=== PATIENT | female | born 1945 | race Caucasian/White ===

== ENCOUNTER 2017-05-21 16:33 | Outpatient (CLI) | payer MEDICARE, OTHER | END 2017-05-21 16:34 | disposition home or self-care (01) | LOC: BICRAD 16:33 | PROVIDERS: ATTEND Internal Medicine Rheumatology | DX: M54.9 Dorsalgia, unspecified (principal); M47.894 Other spondylosis, thoracic region; M47.896 Other spondylosis, lumbar region; M43.16 Spondylolisthesis, lumbar region; I70.90 Unspecified atherosclerosis | CPT/HCPCS: 72072; 72100 ==

== ENCOUNTER 2017-05-25 12:18 | Outpatient (CLI) | payer MEDICARE, OTHER | END 2017-05-25 12:19 | disposition home or self-care (01) | LOC: BICMAMMO 12:18 | PROVIDERS: ATTEND Internal Medicine Rheumatology | DX: Z13.820 Encounter for screening for osteoporosis (principal); M85.80 Other specified disorders of bone density and structure, unspecified site; Z78.0 Asymptomatic menopausal state | CPT/HCPCS: 77080 ==

== ENCOUNTER 2017-10-14 11:05 | Outpatient (CLI) | payer MEDICARE, OTHER | END 2017-10-14 11:06 | disposition home or self-care (01) | LOC: BICRAD 11:05 | PROVIDERS: ATTEND Internal Medicine Rheumatology | DX: M70.61 Trochanteric bursitis, right hip (principal); M53.87 Other specified dorsopathies, lumbosacral region ==

== ENCOUNTER 2018-03-27 12:23 | Inpatient (IN) | payer MEDICARE, OTHER ==
[2018-03-27 13:03] LABS: #Basophils 0.1 thou/uL (0.0-0.2); #Eosinphils 0.1 thou/uL (0.0-0.7); #Lymphocytes 1.7 thou/uL (1.20-3.40); #Monocytes 0.7 thou/uL (0.11-0.59); #Neutrophils 3.3 thou/uL (1.40-6.50); %Lymphocytes 28.7 % (21.0-51.0); %Monocytes 11.4 % (0.0-10.0); %Neutrophils 56.9 % (42.0-75.0); Hemoglobin 10.8 g/dL (12.0-16.0); Mean Corpuscular HGB CONC 31.9 g/dL (32.0-36.0); Mean Corpuscular Hemoglobin 27.1 pg (27.0-31.0); Mean Corpuscular Volume 84.8 fL (78.0-98.0); Mean Platelet Volume 7.6 fL (7.4-10.4); Platelet Count 341 thou/uL (130-400); RBC Distribution Width 15.4 % (11.5-14.5); White Blood Cell (WBC) Count 5.8 thou/uL (4.8-10.8)
[2018-03-27 13:29] LABS: CKMB 6.6 ng/mL (0-6.6)
[2018-03-27 13:31] LABS: ALT (SGPT) 20 U/L (8-55); AST (SGOT) 24 U/L (5-34); Alkaline Phosphatase 88 U/L (40-150); Anion Gap 15 mmol/L (10-20); BUN (Urea Nitrogen) 19 mg/dL (9.8-20.1); Bilirubin, Total 0.9 mg/dL (0.2-1.2); CK (CPK) 233 U/L (29-168); Calc. Creatinine Clearance 0 mL/min (70-130); Calcium 9.8 mg/dL (7.8-10.44); Carbon Dioxide 24 mmol/L (23-31); Chloride 107 mmol/L (98-107); Estimated GFR-MDRD 65; Globulin 2.7 g/dL (2.4-3.5); Glucose 156 mg/dL (83-110); Potassium 3.6 mmol/L (3.5-5.1); Protein, Total 6.7 g/dL (6.0-8.3); Sodium 142 mmol/L (136-145)
--- NOTE | 2018-03-27 13:52 | RAD ---
SINGLE VIEW OF THE CHEST: COMPARISON: 08/15/2015. HISTORY: Difficulty breathing with bilateral lower extremity swelling for 2 weeks. FINDINGS: A single view of the chest shows an enlarged cardiomediastinal silhouette. There is no evidence of c onsolidation, mass, or pleural effusion. IMPRESSION: Cardiomegaly. POS: [facility]
[2018-03-27] MEDS ORDERED: cefTRIAXone\\ROCEPHIN 1 GM VIAL ONE (14:43)
[2018-03-27] MEDS ORDERED: Furosemide 40 MG/4 ML VIAL ONE (16:36)
--- NOTE | 2018-03-27 16:38 | CT ---
CTA CHEST WITH CONTRAST: Technique: Multiple axial tomograms were obtained through the chest following pulmonary angio protoco l with multiplanar reconstruction and 3D post processing. Indications: Shortness of breath, chest pain. Cough. FINDINGS: Pulmonary arteries show adequate enhancement. No evidence of pulmonary embolus identified. There are small bilateral pleural effusions present. There is vascular congestion. There is some grou nd glass opacity which may represent mild edema. Mediastinum is unremarkable. IMPRESSION: 1. No evidence of pulmonary embolus. 2. Bilateral pleural effusions with cardiomegaly and vascular congestion. POS: [facility]
[2018-03-27] MEDS ORDERED: Nitroglycerin 2% Ointment 1 INCH/1 GM Packet ONE ×2 (17:32→17:34)
[2018-03-27 18:56] LABS: Troponin I 0.161 ng/mL (< 0.028)
[2018-03-27] MEDS ORDERED: Dextrose 5% in Water 1,000 ML IV PRN (19:48)
[2018-03-27] MEDS ORDERED: Dextrose 50% Abboject 50 ML SYRINGE SLOW IVP PRN (19:48)
[2018-03-27] MEDS ORDERED: Senokot S 8.6-50 MG TAB PO PRN (19:48)
[2018-03-27] MEDS ORDERED: Guaifenesin DM 100-10/5 ML UDCUP PO PRN (19:48)
[2018-03-27] MEDS ORDERED: HumaLOG 300 UNITS/3 ML VIAL SC PRN (19:48)
--- NOTE | 2018-03-27 21:02 | HP ---
REASON FOR ADMISSION: CHF and COPD exacerbation, demand ischemia. HISTORY OF PRESENTING ILLNESS: The patient gives history of having difficulty breathing with fluid buildup in her legs and chest from last 2 weeks. She has not been able to ambulate more than 20 to 30 feet without getting short of breath. All this was new. She has been coughing and wheezing as well. She does not know if she took her flu shot for this year. No prior cardiac workup, although she has seen Dr. Conti once prior to knee surgery. She has no complaints of chest pain, but has orthopnea at present. Whole night, she was sitting up on bed as she was having difficulty breathing. She was recently on doxycycline from the of this month for likely upper respiratory infection. No fever at home. No complaints of urinary frequency or urgency at present. The family at bedside also mentioned that cognitively, she is not the same at present. PAST MEDICAL AND SURGICAL HISTORY: Hypertension, diabetes mellitus type 2, dyslipidemia, left total knee replacement, appendectomy, hysterectomy, history of gout for which she follows up with Dr. Mojica, cystoscopy, left wrist cyst removal. Colonoscopy done in 2012 was normal per patient. CURRENT MEDICATIONS: The patient was taking doxycycline 100 mg twice daily from the of this month and has finished the course; Protonix 40 mg daily; Ultram p.r.n. for pain, started from the of this month; Lasix, the patient stopped taking this from last 2 weeks, she was supposed to take 40 mg daily; glyburide with metformin 1.25/250 mg p.o. daily; nifedipine extended release 30 mg daily; Duloxetine 60 mg daily; and Crestor 20 mg daily. ALLERGIES: TO ASPIRIN, CODEINE, IODINE, AND PENICILLIN. PERSONAL HISTORY: Does not abuse alcohol or drugs. Quit smoking in 2005, prior to which she smoked half pack a day for nearly 40 years. FAMILY HISTORY: Mother at the age of 48 years, she had history of Hodgkin' s lymphoma. Father in his 80s. Prior to , he had massive pulmonary embolism. CODE STATUS: Full. The power of assistant county attorney is her brother, Mr. Avendaño. REVIEW OF SYSTEMS: CONSTITUTIONAL: Negative for weight loss or gain, ability to conduct usual activities. SKIN: Negative for rash, itching. EYES: Negative for double vision, pain. ENT/MOUTH: Negative for nose bleeding, neck stiffness, pain, tenderness. CARDIOVASCULAR: Negative for palpitations, dyspnea on exertion, orthopnea. RESPIRATORY: Negative for shortness of breath, wheezing, cough, hemoptysis, fever or night sweats. GASTROINTESTINAL: Negative for poor appetite, abdominal pain, heartburn, nausea , vomiting, constipation, or diarrhea. GENITOURINARY: Negative for urgency, frequency, dysuria, nocturia. MUSCULOSKELETAL: Negative for pain, swelling. NEUROLOGIC/PSYCHIATRIC: Negative for anxiety, depression. ALLERGY/IMMUNOLOGIC: Negative for skin rash, bleeding tendency. PHYSICAL EXAMINATION: GENERAL: The patient is a 73-year-old female, who is currently in mild-to- moderate respiratory distress with wheezing. VITAL SIGNS: Blood pressure 140/90, pulse 120 per minute, respiratory rate 24 per minute, temperature 98.2 degrees Fahrenheit, and saturating 97% on 2 L nasal cannula. NECK: Supple. No elevated JVD. EYES: Extraocular muscles intact. Pupils reacting to light. Oral cavity, mucous membranes are moist. No exudates or congestion. CARDIOVASCULAR SYSTEM: S1 and S2 heard. Regular rhythm. RESPIRATORY SYSTEM: Air entry 1+ bilateral. Scattered wheezes plus bilateral. ABDOMEN: Soft. Bowel sounds heard. No tenderness, rigidity, or guarding. EXTREMITIES: There is peripheral edema. No calf tenderness. VASCULAR SYSTEM: Peripheral pulses 1+ bilateral. No ischemic ulcerations or gangrene. CENTRAL NERVOUS SYSTEM: No gross focal deficits noted. The patient is a bit lethargic, otherwise responds well to questions. No hallucinations or delusions. LABORATORY DATA: CT angio of chest done shows no evidence of PE. There is pulmonary vascular congestion, cardiomegaly, and bilateral pleural effusion. Troponin I is indeterminate, peaking up to 0.16. CK-MB 6.6. Albumin is 4.0. CK level is 233. BNP is 830. Serum glucose 156. BUN is 19, creatinine 0.8, and serum bicarbonate 24. Lactic acid 1.5. LFTs are within normal limits. White count of 5.8, hemoglobin and hematocrit 10 and 33, platelet count 341 with 56% neutrophils, and MCV is 84. EKG done shows sinus tach at 128 beats per minute. There is RBBB seen. CLINICAL IMPRESSION AND PLAN: The patient will be admitted to telemetry for acute new onset congestive heart failure exacerbation and acute chronic obstructive pulmonary disease exacerbation. The patient likely might have had a viral illness, which might have escalated this from last 2 weeks. She will be on DuoNeb q.6 hourly, Levaquin 500 mg IV daily, Solu-Medrol 40 mg IV q.6 hourly along with Lasix 40 mg IV q.12 hourly. We will obtain blood and sputum cultures. Viral PCR to confirm viral illness. Echo with 2D Doppler for LV function. We will also obtain Cardiology consultation with Dr. Willson, who was fashion merchandiser. We will continue her Crestor and Cymbalta as before. She will be on a small dose of Coreg and Cozaar for now. The patient is allergic to aspirin and we will place her on Plavix for now. The patient has never had prior cardiac workup, although she has seen Dr. Conti. Job ID: [id number] [facility]
[2018-03-27] MEDS: Folic Acid 1 MG TAB PO SCH (22:08)
[2018-03-27] MEDS: Carvedilol 3.125 MG TAB PO SCH (22:08)
[2018-03-27] MEDS: Famotidine 20 MG TAB PO SCH (22:09)
[2018-03-28 05:05] LABS: #Basophils 0.1 thou/uL (0.0-0.2); #Lymphocytes 0.7 thou/uL (1.20-3.40); #Monocytes 0.2 thou/uL (0.11-0.59); #Neutrophils 4.5 thou/uL (1.40-6.50); %Basophils 1.1 % (0.0-1.0); %Eosinophils 0.3 % (0.0-10.0); %Lymphocytes 13.5 % (21.0-51.0); %Monocytes 2.8 % (0.0-10.0); %Neutrophils 82.4 % (42.0-75.0); Hemoglobin 10.2 g/dL (12.0-16.0); Mean Corpuscular HGB CONC 31.4 g/dL (32.0-36.0); Mean Corpuscular Hemoglobin 26.4 pg (27.0-31.0); Mean Corpuscular Volume 83.9 fL (78.0-98.0); Mean Platelet Volume 7.5 fL (7.4-10.4); Platelet Count 328 thou/uL (130-400); RBC Distribution Width 15.2 % (11.5-14.5); Red Blood Cell (RBC) Count 3.88 mill/uL (4.20-5.40); White Blood Cell (WBC) Count 5.5 thou/uL (4.8-10.8)
[2018-03-28 05:24] LABS: Anion Gap 15 mmol/L (10-20); BUN (Urea Nitrogen) 18 mg/dL (9.8-20.1); Calc. Creatinine Clearance 85 mL/min (70-130); Calcium 9.5 mg/dL (7.8-10.44); Carbon Dioxide 26 mmol/L (23-31); Chloride 102 mmol/L (98-107); Estimated GFR-MDRD 68; Glucose 142 mg/dL (83-110); Potassium 3.5 mmol/L (3.5-5.1); Sodium 139 mmol/L (136-145)
[2018-03-28] MEDS: Furosemide 40 MG/4 ML VIAL SLOW IVP SCH ×2 (06:21→13:39)
--- NOTE | 2018-03-28 07:26 | CT ---
CT HEAD WITHOUT CONTRAST: Multiple axial tomograms were obtained through the head without IV enhancement. INDICATION: Mental status change. Confusion. Ventricles have normal size and position. There is no evidence of intracranial mass, hemorrhage, or infarct. Sinuses are clear. IMPRESSION: No acute abnormality. POS: [facility]
[2018-03-28] MEDS: DULoxetine 60 MG CAP PO SCH (09:45)
[2018-03-28] MEDS: Famotidine 20 MG TAB PO SCH ×2 (09:45→20:12)
[2018-03-28] MEDS: Clopidogrel Bisulfate 75 MG TAB PO SCH (09:45)
[2018-03-28] MEDS: Carvedilol 3.125 MG TAB PO SCH ×2 (09:45→20:12)
[2018-03-28] MEDS: Losartan 25 MG TAB PO SCH (09:45)
[2018-03-28] MEDS: Folic Acid 1 MG TAB PO SCH ×2 (09:45→20:12)
[2018-03-28] MEDS: Enoxaparin Sodium 40 MG/0.4 ML SYRINGE SC SCH (09:46)
[2018-03-28] MEDS: Rosuvastatin 20 MG TAB PO SCH (09:46)
[2018-03-28 10:57] VITALS: BMI 39.4
--- NOTE | 2018-03-28 12:25 | PDOC.PN ---
- Subjective Encounter Start Date: 03/28/18 Encounter Start Time: 09:00 Subjective: sob is better, no wheezing this am -: feels better - Objective Resuscitation Status - Order Detail: 03/27/18 19:41 Resuscitation Status Routine Resuscitation Status: FULL: Full Resuscitation Discussed with: NOE is brother: Mr.Vince BAKER Reviewed: Yes Vital Signs & Weight: Vital Signs (12 hours) Temp Pulse Resp BP Pulse Ox 03/28/18 11:22 98.4 F 111 H 20 122/78 92 L 03/28/18 07:22 95 03/28/18 07:20 86 L 03/28/18 07:18 120 H 18 95 03/28/18 07:04 97.9 F 117 H 20 136/86 92 L 03/28/18 04:48 97.6 F 68 20 139/79 95 Weight Admit Weight 193 lb 12.8 oz Weight 195 lb Result Diagrams: 03/28/18 04:53 03/28/18 04:53 Additional Labs: Accuchecks 03/28/18 03/27/18 11:25 21:26 POC Glucose 173 H 120 H Phys Exam - Physical Examination HEENT: PERRLA, moist MMs Neck: no JVD, supple Respiratory: no wheezing basal rales+ Cardiovascular: RRR, no significant murmur Gastrointestinal: soft, non-tender, positive bowel sounds Musculoskeletal: pulses present, edema present Neurological: non-focal, moves all 4 limbs Psychiatric: normal affect, A&O x 3 Dx/Plan (1) Acute exacerbation of CHF (congestive heart failure) Code(s): I50.9 - HEART FAILURE, UNSPECIFIED Status: Acute Qualifiers: Heart failure type: unspecified Qualified Code(s): I50.9 - Heart failure, unspecified (2) COPD exacerbation Code(s): J44.1 - CHRONIC OBSTRUCTIVE PULMONARY DISEASE W (ACUTE) EXACERBATION Status: Acute (3) DM type 2 (diabetes mellitus, type 2) Status: Chronic Qualifiers: Diabetes mellitus intermodal dispatcher insulin use: without assisted use Diabetes mellitus complication status: with unspecified complications Qualified Code(s) : E11.8 - Type 2 diabetes mellitus with unspecified complications (4) Depression Code(s): F32.9 - MAJOR DEPRESSIVE DISORDER, SINGLE EPISODE, UNSPECIFIED Status : Chronic Qualifiers: Depression Type: unspecified Qualified Code(s): F32.9 - Major depressive disorder, single episode, unspecified (5) HLD (hyperlipidemia) Code(s): E78.5 - HYPERLIPIDEMIA, UNSPECIFIED Status: Chronic Qualifiers: Hyperlipidemia type: unspecified Qualified Code(s): E78.5 - Hyperlipidemia , unspecified (6) HTN (hypertension) Code(s): I10 - ESSENTIAL (PRIMARY) HYPERTENSION Status: Chronic Qualifiers: Hypertension type: essential hypertension Qualified Code(s): I10 - Essential (primary) hypertension (7) Rheumatoid arthritis Code(s): M06.9 - RHEUMATOID ARTHRITIS, UNSPECIFIED Status: Chronic Qualifiers: Rheumatoid arthritis location: unspecified site - Plan is on plavix, crestor, coreg, cozaar, lasix iv -: levaquin, will switch to oral steroids -: await echo results, cardio consultation -: to amb as tolerated -: ct brain no ac abn, viral pcr is -ve * . Review of Systems - Medications/Allergies Allergies/Adverse Reactions: Allergies Allergy/AdvReac Type Severity Reaction Status Date / Time aspirin Allergy Rash Verified 03/27/18 21:45 codeine Allergy Rash Verified 03/27/18 21:45 Iodine and Iodide Containing Allergy facial Verified 03/27/18 21:45 Produc swelling Penicillins Allergy Rash Verified 03/27/18 21:45 Medications: Current Medications Albuterol/Ipratropium (Duoneb) 3 ml NEB [id number] [facility] Last Admin: 03/28/18 07:18 Dose: 3 ml Carvedilol (Coreg) 3.125 mg PO BID [facility] Last Admin: 03/28/18 09:45 Dose: 3.125 mg Clopidogrel Bisulfate (Plavix) 75 mg PO DAILY [facility] Last Admin: 03/28/18 09:45 Dose: 75 mg Dextrose/Water (Dextrose 50%) 25 gm SLOW IVP PRN PRN PRN Reason: Hypoglycemia Duloxetine HCl (Cymbalta) 60 mg PO DAILY [facility] Last Admin: 03/28/18 09:45 Dose: 60 mg Enoxaparin Sodium (Lovenox) 40 mg SC 0900 [facility] Last Admin: 03/28/18 09:46 Dose: 40 mg Famotidine (Pepcid) 20 mg PO BID [facility] Last Admin: 03/28/18 09:45 Dose: 20 mg Folic Acid (Folvite) 1 mg PO BID [facility] Last Admin: 03/28/18 09:45 Dose: 1 mg Furosemide (Lasix) 40 mg SLOW IVP 0600,1400 [facility] Last Admin: 03/28/18 06:21 Dose: 40 mg Glucagon (Glucagon) 1 mg IM PRN PRN PRN Reason: Hypoglycemia Guaifenesin/Dextromethorphan (Robitussin Dm) 15 ml PO Q4H PRN PRN Reason: Cough Dextrose/Water (D5w) 1,000 mls @ 0 mls/hr IV .Q0M PRN PRN Reason: Hypoglycemia Levofloxacin 500 mg/ Device 100 mls @ 100 mls/hr IVPB 2000 [facility] Last Admin: 03/27/18 21:24 Dose: Not Given Insulin Human Lispro (Humalog) 0 units SC .MODERATE SLIDING SC PRN PRN Reason: Moderate Correctional Scale Losartan Potassium (Cozaar) 12.5 mg PO DAILY [facility] Last Admin: 03/28/18 09:45 Dose: 12.5 mg Methylprednisolone Sodium Succinate (Solu-Medrol) 40 mg IVP Q6HR [facility] Last Admin: 03/28/18 06:20 Dose: 40 mg Rosuvastatin Calcium (Crestor) 20 mg PO DAILY [facility] Last Admin: 03/28/18 09:46 Dose: 20 mg Senna/Docusate Sodium (Senokot S) 2 tab PO BID PRN PRN Reason: Constipation
[2018-03-28] MEDS ORDERED: Sodium Chloride 0.9% 1,000 ML IV SCH (17:15)
[2018-03-28] MEDS ORDERED: Communication Order-Pharmacy FS SCH (17:15)
--- NOTE | 2018-03-29 00:08 | CON ---
DATE OF CONSULTATION: HISTORY OF PRESENT ILLNESS: Jocelynn Smith is a 73-year-old white female admitted with increased shortness of breath. She apparently was evaluated by Dr. Conti 2-1/ 2 to 3 years ago prior to undergoing left total knee replacement. He told her that her heart was weak and that she probably should not undergo surgery, however, she elected to anyway. She has been on Lasix for several years. Over the last 2 weeks, she has been having increasing peripheral edema. She has also increased shortness of breath when she tries to walk to her mailbox. She becomes short of breath after walking 20-30 feet. She will have various types of chest discomfort, not lasting over several seconds. Due to increased shortness of breath, she came to the emergency room, was given intravenous Lasix and she diuresed at least 1000 mL. She states that her breathing is doing much better. PAST MEDICAL HISTORY: Hypertension, diabetes, hyperlipidemia, arthritis. OPERATIONS: Appendectomy, hysterectomy, left total knee replacement. MEDICATIONS: 1. Furosemide 40 mg q.a.m. 2. Rosuvastatin 20 at bedtime. 3. Cymbalta 60 daily. 4. Glyburide/metformin b.i.d. 5. Nifedipine 30 mg daily. 6. Protonix 40 daily. 7. Tramadol 50 b.i.d. ALLERGIES: ASPIRIN CAUSES RASH. IODINE PRODUCTS CAUSES MOUTH SWELLING. CODEINE AND PENICILLIN. SOCIAL HISTORY: She smoked one-half pack per day, but stopped in 2005. She does not drink. FAMILY HISTORY: Brother had bypass surgery. Father of pulmonary embolism. REVIEW OF SYSTEMS: 12-point review of systems otherwise unremarkable. PHYSICAL EXAMINATION: VITAL SIGNS: Blood pressure 139/73, pulse of 113. HEENT: PERRL. NECK: Supple. CHEST: Reveals distant breath sounds. No wheezing. CARDIOVASCULAR: S1 and S2 are normal without any S3, S4, or murmurs. ABDOMEN: Normal bowel sounds without tenderness or organomegaly. EXTREMITIES: Revealed no clubbing or cyanosis. Does have 1+ pretibial edema. NEUROLOGICAL: Grossly intact. SKIN: Warm and dry. LABORATORY DATA: EKG revealed sinus tachycardia with rate of 128 and right bundle branch block, and possible septal infarct. Echocardiogram revealed left pleural effusion, ejection fraction of 35% to 40%. Hypokinesis of the lateral wall. Mild left atrial enlargement. [id number] mitral regurgitation and [id number] tricuspid regurgitation. Chest x-ray revealed cardiomegaly and probable left effusion. Chest CTA revealed vascular congestion, no evidence of pulmonary embolism. She apparently was given contrast during that scan. Hemoglobin 10.2, hematocrit 32.5, white count 5500, platelets 328,000. Sodium 139, potassium 3.5, chloride 102, carbon dioxide 26, BUN 18, creatinine 0.83. Troponin I of 0.161. TSH is normal. BNP 830.9. IMPRESSION: 1. Acute on chronic systolic heart failure with ejection fraction of 35% to 40% on echocardiogram. 2. Mildly elevated troponin I, which may be due to demand ischemia. 3. Hypertension. 4. Diabetes. 5. Hypercholesterolemia. 6. Former smoker. 7. Chronic obstructive pulmonary disease. 8. Obesity. 9. Iodine allergy. 10. True Aspirin allergy. PLAN: Fasting lipid profile will be obtained. With her left ventricular dysfunction and never previously having had a full evaluation and with her multiple cardiac risk factors, it was recommended she undergo cardiac catheterization. Risks of this were discussed with the patient including , myocardial infarction, dye reaction, vascular injury, CVA, transfusion, limb loss, renal loss, etc. Also risk of intervention and stent placement were discussed including , myocardial infarction, emergent CABG, restenosis, stent thrombosis, vessel perforation, etc. She has appropriately been placed on carvedilol with her tachycardia and Plavix with her aspirin allergy. She apparently had CT angiogram with contrast and apparently did not have any significant reaction. However, she is quite emphatic that iodine caused the tongue and facial swelling when she was in her 20s. I will therefore start premedication for iodine allergy and consideration will be given to cardiac catheterization on March if she wishes to proceed. Job ID: [id number] [facility]
[2018-03-29] MEDS: diphenhydrAMINE 50 MG CAP PO SCH ×3 (05:52→18:24)
[2018-03-29] MEDS: Furosemide 40 MG/4 ML VIAL SLOW IVP SCH (05:52)
[2018-03-29] MEDS: predniSONE 20 MG TAB PO SCH ×3 (05:52→18:24)
[2018-03-29 06:41] LABS: Cardiac Risk 1.9 (Less than 4.5)
[2018-03-29] MEDS: Rosuvastatin 20 MG TAB PO SCH (09:21)
[2018-03-29] MEDS: Losartan 25 MG TAB PO SCH (09:21)
[2018-03-29] MEDS: DULoxetine 60 MG CAP PO SCH (09:21)
[2018-03-29] MEDS: Carvedilol 3.125 MG TAB PO SCH ×2 (09:21→20:32)
[2018-03-29] MEDS: Folic Acid 1 MG TAB PO SCH ×2 (09:21→20:32)
[2018-03-29] MEDS: Clopidogrel Bisulfate 75 MG TAB PO SCH (09:21)
[2018-03-29] MEDS: Famotidine 20 MG TAB PO SCH ×2 (09:21→20:32)
[2018-03-29] MEDS: Furosemide 40 MG TAB PO SCH (09:21)
[2018-03-29] MEDS: Enoxaparin Sodium 40 MG/0.4 ML SYRINGE SC SCH (09:23)
--- NOTE | 2018-03-29 10:24 | PDOC.PN ---
- Subjective Encounter Start Date: 03/29/18 Encounter Start Time: 10:00 Subjective: no sob, is actually making her bed in the room -: feels better, no chest pain or palp - Objective Resuscitation Status - Order Detail: 03/27/18 19:41 Resuscitation Status Routine Resuscitation Status: FULL: Full Resuscitation Discussed with: NOE is brother: Mr.Vince BAKER Reviewed: Yes Vital Signs & Weight: Vital Signs (12 hours) Temp Pulse Resp BP Pulse Ox 03/29/18 07:55 98.2 F 118 H 16 108/68 95 03/29/18 07:40 115 H 18 95 03/29/18 04:00 98.0 F 102 H 141/62 H 93 L 03/29/18 00:17 115 H 20 97 Weight Admit Weight 193 lb 12.8 oz Weight 190 lb 7 oz I&O: 03/28/18 03/29/18 03/30/18 06:59 06:59 06:59 Intake Total 240 Output Total 1700 Balance -1460 Result Diagrams: 03/28/18 04:53 03/28/18 04:53 Additional Labs: Accuchecks 03/29/18 03/28/18 05:30 11:25 POC Glucose 171 H 173 H Phys Exam - Physical Examination HEENT: PERRLA, moist MMs Neck: no JVD, supple Respiratory: no wheezing, no rales Cardiovascular: RRR, no significant murmur Gastrointestinal: soft, non-tender, positive bowel sounds Musculoskeletal: no edema, pulses present Neurological: non-focal, moves all 4 limbs Psychiatric: normal affect, A&O x 3 Dx/Plan (1) Acute exacerbation of CHF (congestive heart failure) Code(s): I50.9 - HEART FAILURE, UNSPECIFIED Status: Acute Qualifiers: Heart failure type: systolic Qualified Code(s): I50.23 - Acute on chronic systolic (congestive) heart failure Comment: ef of 35%, lat wall hypokinesis on echo, stage B (2) COPD exacerbation Code(s): J44.1 - CHRONIC OBSTRUCTIVE PULMONARY DISEASE W (ACUTE) EXACERBATION Status: Acute Comment: resolving (3) DM type 2 (diabetes mellitus, type 2) Status: Chronic Qualifiers: Diabetes mellitus superintendent container terminal insulin use: without longterm use Diabetes mellitus complication status: with unspecified complications Qualified Code(s) : E11.8 - Type 2 diabetes mellitus with unspecified complications (4) Depression Code(s): F32.9 - MAJOR DEPRESSIVE DISORDER, SINGLE EPISODE, UNSPECIFIED Status : Chronic Qualifiers: Depression Type: unspecified Qualified Code(s): F32.9 - Major depressive disorder, single episode, unspecified (5) HLD (hyperlipidemia) Code(s): E78.5 - HYPERLIPIDEMIA, UNSPECIFIED Status: Chronic Qualifiers: Hyperlipidemia type: unspecified Qualified Code(s): E78.5 - Hyperlipidemia , unspecified (6) HTN (hypertension) Code(s): I10 - ESSENTIAL (PRIMARY) HYPERTENSION Status: Chronic Qualifiers: Hypertension type: essential hypertension Qualified Code(s): I10 - Essential (primary) hypertension (7) Rheumatoid arthritis Code(s): M06.9 - RHEUMATOID ARTHRITIS, UNSPECIFIED Status: Chronic Qualifiers: Rheumatoid arthritis location: unspecified site - Plan for cath in am, is getting prepped for iodine allergy -: on plavix, coreg, cozaar and oral lasix -: levaquin for another 2 days and dc -: prednisone, nebs prn -: is amb in room without any assistance * .
[2018-03-29 11:17] LABS: Anion Gap 19 mmol/L (10-20); BUN (Urea Nitrogen) 26 mg/dL (9.8-20.1); Calc. Creatinine Clearance 71 mL/min (70-130); Calcium 9.4 mg/dL (7.8-10.44); Carbon Dioxide 24 mmol/L (23-31); Chloride 98 mmol/L (98-107); Estimated GFR-MDRD 56; Glucose 147 mg/dL (83-110); Potassium 3.8 mmol/L (3.5-5.1); Sodium 137 mmol/L (136-145)
--- NOTE | 2018-03-29 14:11 | EKG ---
Test Reason : SOB Blood Pressure : / mmHG Vent. Rate : 128 BPM Atrial Rate : 129 BPM P-R Int : 000 ms QRS Dur : 138 ms QT Int : 392 ms P-R-T Axes : 077 128 061 degrees QTc Int : 572 ms Sinus tachycardia Right bundle branch block Septal infarct , age undetermined Abnormal ECG Confirmed by MARIBETH HERNANDEZ DO ([id number]), social media editor SWEETIE GARCIA ([id number]) on 03/29/2018 2:11:47 PM Referred By: DAVID Confirmed By:MARIBETH HERNANDEZ DO
[2018-03-30] MEDS: predniSONE 20 MG TAB PO SCH ×2 (00:36→06:07)
[2018-03-30] MEDS: diphenhydrAMINE 50 MG CAP PO SCH ×2 (00:36→06:06)
[2018-03-30] MEDS ORDERED: Sodium Chloride 0.9% 1,000 ML IV SCH ×2 (06:00→07:45)
[2018-03-30] MEDS: Rosuvastatin 20 MG TAB PO SCH (06:06)
[2018-03-30] MEDS: Carvedilol 3.125 MG TAB PO SCH (06:06)
[2018-03-30] MEDS: DULoxetine 60 MG CAP PO SCH (06:06)
[2018-03-30] MEDS: Losartan 25 MG TAB PO SCH (06:06)
[2018-03-30] MEDS: Folic Acid 1 MG TAB PO SCH ×2 (06:07→21:33)
[2018-03-30] MEDS: Famotidine 20 MG TAB PO SCH ×2 (06:07→21:33)
[2018-03-30] MEDS: Clopidogrel Bisulfate 75 MG TAB PO SCH (06:07)
[2018-03-30] MEDS ORDERED: Heparin 10,000 UNITS/1 ML VIAL ONE (06:33)
[2018-03-30 06:51] LABS: Anion Gap 17 mmol/L (10-20); BUN (Urea Nitrogen) 36 mg/dL (9.8-20.1); Calc. Creatinine Clearance 53 mL/min (70-130); Carbon Dioxide 29 mmol/L (23-31); Chloride 97 mmol/L (98-107); Estimated GFR-MDRD 40; Glucose 159 mg/dL (83-110); Potassium 3.8 mmol/L (3.5-5.1); Sodium 139 mmol/L (136-145)
[2018-03-30] MEDS ORDERED: Midazolam HCl 2 mg/2 ml Vial ONE (07:07)
[2018-03-30] MEDS ORDERED: Fentanyl 100 MCG/2 ML VIAL ONE (07:08)
[2018-03-30] MEDS ORDERED: Protamine Sulfate 50 MG/5 ML VIAL ONE (07:28)
[2018-03-30] MEDS ORDERED: Acetaminophen/Codeine 30-300mg Tablet PO PRN ×2 (07:44)
[2018-03-30] MEDS ORDERED: traMADol HCl 50 MG TAB PO PRN (07:44)
[2018-03-30] MEDS ORDERED: Sodium Chloride 0.9% 200 ML IV SCH (07:45)
[2018-03-30] MEDS ORDERED: Carvedilol 3.125 MG TAB PO SCH (08:30)
[2018-03-30] MEDS: Furosemide 40 MG TAB PO SCH (08:40)
[2018-03-30] MEDS: Furosemide 20 MG TAB PO SCH (09:38)
[2018-03-30] MEDS: Carvedilol 6.25 MG TAB PO SCH (16:19)
--- NOTE | 2018-03-31 06:28 | PDOC.PN ---
- Subjective Encounter Start Date: 03/30/18 Encounter Start Time: 10:00 Subjective: pt up in bed no complains - Objective Resuscitation Status - Order Detail: 03/27/18 19:41 Resuscitation Status Routine Resuscitation Status: FULL: Full Resuscitation Discussed with: NOE is brother: Vital Signs & Weight: Vital Signs (12 hours) Temp Pulse Resp BP Pulse Ox 03/31/18 05:58 92 18 94 L 03/31/18 04:00 97.9 F 112 H 20 122/74 93 L 03/30/18 19:30 97.5 F L 111 H 14 117/77 94 L 03/30/18 18:38 103 H 18 94 L Weight Admit Weight 193 lb 12.8 oz Weight 188 lb 12.8 oz I&O: 03/29/18 03/30/18 03/31/18 06:59 06:59 06:59 Intake Total 240 1450 600 Output Total 1700 500 400 Balance -1460 950 200 Result Diagrams: 03/28/18 04:53 03/30/18 06:23 Additional Labs: Accuchecks 03/31/18 03/30/18 03/30/18 06:02 20:52 17:00 POC Glucose 129 H 157 H 137 H 03/30/18 03/30/18 10:41 06:28 POC Glucose 150 H 167 H Phys Exam - Physical Examination Neck: no nodes, no JVD, supple, full ROM Respiratory: no wheezing, no rales, no rhonchi, wheezing present, clear to auscultation bilateral Cardiovascular: RRR, no significant murmur, no rub, gallop, irregular right groin site dressing intact, pedal pulse present bilaterally Gastrointestinal: soft, non-tender, no distention, positive bowel sounds Dx/Plan (1) Acute exacerbation of CHF (congestive heart failure) Code(s): I50.9 - HEART FAILURE, UNSPECIFIED Status: Acute Qualifiers: Heart failure type: systolic Qualified Code(s): I50.23 - Acute on chronic systolic (congestive) heart failure Comment: ef of 35%, lat wall hypokinesis on echo, stage B (2) COPD exacerbation Code(s): J44.1 - CHRONIC OBSTRUCTIVE PULMONARY DISEASE W (ACUTE) EXACERBATION Status: Acute Comment: resolving (3) Morbid obesity Code(s): E66.01 - MORBID (SEVERE) OBESITY DUE TO EXCESS CALORIES Status: Chronic (4) DM type 2 (diabetes mellitus, type 2) Status: Chronic Qualifiers: Diabetes mellitus ad terminal makeup operator insulin use: without ad terminal makeup operator use Diabetes mellitus complication status: with unspecified complications Qualified Code(s) : E11.8 - Type 2 diabetes mellitus with unspecified complications (5) Rheumatoid arthritis Code(s): M06.9 - RHEUMATOID ARTHRITIS, UNSPECIFIED Status: Chronic Qualifiers: Rheumatoid arthritis location: unspecified site - Plan pt's cath normal. on bb/chaitanya/statin -: creatinine improving check bmp -: will continue abx for now * . Review of Systems - Review of Systems Respiratory: negative: Cough, Dry, Shortness of Breath, Hemoptysis, SOB with Excertion, Pleuritic Pain, Sputum, Wheezing Cardiovascular: negative: chest pain, palpitations, orthopnea, paroxysmal nocturnal dyspnea, edema, light headedness, other Gastrointestinal: negative: Nausea, Vomiting, Abdominal Pain, Diarrhea, Constipation, Melena, Hematochezia, Other - Medications/Allergies Allergies/Adverse Reactions: Allergies Allergy/AdvReac Type Severity Reaction Status Date / Time aspirin Allergy Rash Verified 03/27/18 21:45 codeine Allergy Rash Verified 03/27/18 21:45 Iodine and Iodide Containing Allergy facial Verified 03/27/18 21:45 Produc swelling Penicillins Allergy Rash Verified 03/27/18 21:45 Medications: Current Medications Albuterol/Ipratropium (Duoneb) 3 ml NEB [id number] [facility] Last Admin: 03/31/18 05:58 Dose: 3 ml Carvedilol (Coreg) 6.25 mg PO BID-WM [facility] Last Admin: 03/30/18 16:19 Dose: 6.25 mg Clopidogrel Bisulfate (Plavix) 75 mg PO DAILY [facility] Last Admin: 03/30/18 06:07 Dose: 75 mg Dextrose/Water (Dextrose 50%) 25 gm SLOW IVP PRN PRN PRN Reason: Hypoglycemia Duloxetine HCl (Cymbalta) 60 mg PO DAILY [facility] Last Admin: 03/30/18 06:06 Dose: 60 mg Famotidine (Pepcid) 20 mg PO BID [facility] Last Admin: 03/30/18 21:33 Dose: 20 mg Folic Acid (Folvite) 1 mg PO BID [facility] Last Admin: 03/30/18 21:33 Dose: 1 mg Furosemide (Lasix) 20 mg PO DAILY [facility] Last Admin: 03/30/18 09:38 Dose: 20 mg Glucagon (Glucagon) 1 mg IM PRN PRN PRN Reason: Hypoglycemia Guaifenesin/Dextromethorphan (Robitussin Dm) 15 ml PO Q4H PRN PRN Reason: Cough Dextrose/Water (D5w) 1,000 mls @ 0 mls/hr IV .Q0M PRN PRN Reason: Hypoglycemia Levofloxacin 500 mg/ Device 100 mls @ 100 mls/hr IVPB 1999 [facility] Last Admin: 03/30/18 21:32 Dose: 100 mls Insulin Human Lispro (Humalog) 0 units SC .MODERATE SLIDING SC PRN PRN Reason: Moderate Correctional Scale Last Admin: 03/29/18 12:57 Dose: 2 unit Losartan Potassium (Cozaar) 12.5 mg PO DAILY [facility] Last Admin: 03/30/18 06:06 Dose: 12.5 mg Rosuvastatin Calcium (Crestor) 20 mg PO DAILY [facility] Last Admin: 03/30/18 06:06 Dose: 20 mg Senna/Docusate Sodium (Senokot S) 2 tab PO BID PRN PRN Reason: Constipation Sodium Chloride (Flush - Normal Saline) 10 ml IVF Q12HR [facility] Last Admin: 03/30/18 21:33 Dose: 10 ml Sodium Chloride (Flush - Normal Saline) 10 ml IVF PRN PRN PRN Reason: Saline Flush
[2018-03-31 07:59] LABS: Anion Gap 17 mmol/L (10-20); BUN (Urea Nitrogen) 40 mg/dL (9.8-20.1); Calc. Creatinine Clearance 53 mL/min (70-130); Calcium 8.8 mg/dL (7.8-10.44); Carbon Dioxide 27 mmol/L (23-31); Chloride 102 mmol/L (98-107); Estimated GFR-MDRD 41; Glucose 114 mg/dL (83-110); Potassium 3.3 mmol/L (3.5-5.1); Sodium 143 mmol/L (136-145)
[2018-03-31] MEDS: Rosuvastatin 20 MG TAB PO SCH (09:00)
[2018-03-31] MEDS: Folic Acid 1 MG TAB PO SCH ×2 (09:00→20:27)
[2018-03-31] MEDS: Carvedilol 6.25 MG TAB PO SCH ×2 (09:00→16:13)
[2018-03-31] MEDS: Clopidogrel Bisulfate 75 MG TAB PO SCH (09:01)
[2018-03-31] MEDS: Famotidine 20 MG TAB PO SCH ×2 (09:01→20:27)
[2018-03-31] MEDS: Furosemide 20 MG TAB PO SCH (09:01)
[2018-03-31] MEDS: DULoxetine 60 MG CAP PO SCH (09:01)
[2018-03-31] MEDS ORDERED: Sodium Chloride 0.9% 500 ML IV SCH (10:15)
[2018-03-31] MEDS ORDERED: Potassium Chloride 20 MEQ TAB PO SCH (11:00)
--- NOTE | 2018-03-31 17:51 | PDOC.PN ---
- Subjective Encounter Start Date: 03/31/18 Encounter Start Time: 09:00 Subjective: pt up in bed no complains - Objective Resuscitation Status - Order Detail: 03/27/18 19:41 Resuscitation Status Routine Resuscitation Status: FULL: Full Resuscitation Discussed with: NOE is brother: Vital Signs & Weight: Vital Signs (12 hours) Temp Pulse Pulse Pulse Resp BP BP 03/31/18 16:16 97.9 F 103 H 15 03/31/18 16:13 140/65 03/31/18 11:45 98.0 F 103 H 18 03/31/18 11:22 116 H 100 142/82 H 03/31/18 08:56 98.0 F 103 H 15 03/31/18 05:58 92 18 BP BP BP Pulse Ox Pulse Ox Pulse Ox 03/31/18 16:16 140/65 94 L 03/31/18 16:13 03/31/18 11:45 135/64 94 L 03/31/18 11:22 124/67 99 97 03/31/18 08:56 142/80 H 95 03/31/18 05:58 94 L Weight Admit Weight 193 lb 12.8 oz Weight 188 lb 12.8 oz I&O: 03/30/18 03/31/18 04/01/18 06:59 06:59 06:59 Intake Total 1450 900 Output Total 500 500 Balance 950 400 Result Diagrams: 03/28/18 04:53 03/31/18 07:29 Additional Labs: Accuchecks 03/31/18 03/31/18 03/31/18 16:47 11:44 06:02 POC Glucose 109 121 H 129 H 03/30/18 20:52 POC Glucose 157 H Phys Exam - Physical Examination Neck: no nodes, no JVD, supple, full ROM Respiratory: no wheezing, no rales, no rhonchi, wheezing present, clear to auscultation bilateral Cardiovascular: RRR, no significant murmur, no rub, gallop, irregular Gastrointestinal: soft, non-tender, no distention, positive bowel sounds Dx/Plan (1) Acute exacerbation of CHF (congestive heart failure) Code(s): I50.9 - HEART FAILURE, UNSPECIFIED Status: Acute Qualifiers: Heart failure type: systolic Qualified Code(s): I50.23 - Acute on chronic systolic (congestive) heart failure Comment: ef of 35%, lat wall hypokinesis on echo, stage B (2) COPD exacerbation Code(s): J44.1 - CHRONIC OBSTRUCTIVE PULMONARY DISEASE W (ACUTE) EXACERBATION Status: Acute Comment: resolving (3) Morbid obesity Code(s): E66.01 - MORBID (SEVERE) OBESITY DUE TO EXCESS CALORIES Status: Chronic (4) DM type 2 (diabetes mellitus, type 2) Status: Chronic Qualifiers: Diabetes mellitus exterminator insulin use: without custodial use Diabetes mellitus complication status: with unspecified complications Qualified Code(s) : E11.8 - Type 2 diabetes mellitus with unspecified complications (5) Rheumatoid arthritis Code(s): M06.9 - RHEUMATOID ARTHRITIS, UNSPECIFIED Status: Chronic Qualifiers: Rheumatoid arthritis location: unspecified site - Plan pt is tachycardiac on ambulation -: will increase coreg, and titrate her bp meds since her bp is also -: elevated. possible home in am. will give 500cc bolus. * . Review of Systems - Review of Systems Respiratory: negative: Cough, Dry, Shortness of Breath, Hemoptysis, SOB with Excertion, Pleuritic Pain, Sputum, Wheezing Cardiovascular: negative: chest pain, palpitations, orthopnea, paroxysmal nocturnal dyspnea, edema, light headedness, other Gastrointestinal: negative: Nausea, Vomiting, Abdominal Pain, Diarrhea, Constipation, Melena, Hematochezia, Other - Medications/Allergies Allergies/Adverse Reactions: Allergies Allergy/AdvReac Type Severity Reaction Status Date / Time aspirin Allergy Rash Verified 03/27/18 21:45 codeine Allergy Rash Verified 03/27/18 21:45 Iodine and Iodide Containing Allergy facial Verified 03/27/18 21:45 Produc swelling Penicillins Allergy Rash Verified 03/27/18 21:45 Medications: Current Medications Albuterol/Ipratropium (Duoneb) 3 ml NEB [id number] [facility] Last Admin: 03/31/18 11:47 Dose: 3 ml Carvedilol (Coreg) 25 mg PO BID-WM [facility] Last Admin: 03/31/18 16:13 Dose: 25 mg Clopidogrel Bisulfate (Plavix) 75 mg PO DAILY [facility] Last Admin: 03/31/18 09:01 Dose: 75 mg Dextrose/Water (Dextrose 50%) 25 gm SLOW IVP PRN PRN PRN Reason: Hypoglycemia Duloxetine HCl (Cymbalta) 60 mg PO DAILY [facility] Last Admin: 03/31/18 09:01 Dose: 60 mg Famotidine (Pepcid) 20 mg PO BID [facility] Last Admin: 03/31/18 09:01 Dose: 20 mg Folic Acid (Folvite) 1 mg PO BID [facility] Last Admin: 03/31/18 09:00 Dose: 1 mg Furosemide (Lasix) 20 mg PO DAILY [facility] Last Admin: 03/31/18 09:01 Dose: 20 mg Glucagon (Glucagon) 1 mg IM PRN PRN PRN Reason: Hypoglycemia Guaifenesin/Dextromethorphan (Robitussin Dm) 15 ml PO Q4H PRN PRN Reason: Cough Dextrose/Water (D5w) 1,000 mls @ 0 mls/hr IV .Q0M PRN PRN Reason: Hypoglycemia Levofloxacin 500 mg/ Device 100 mls @ 100 mls/hr IVPB 1999 [facility] Last Admin: 03/30/18 21:32 Dose: 100 mls Insulin Human Lispro (Humalog) 0 units SC .MODERATE SLIDING SC PRN PRN Reason: Moderate Correctional Scale Last Admin: 03/29/18 12:57 Dose: 2 unit Losartan Potassium (Cozaar) 12.5 mg PO DAILY [facility] Last Admin: 03/30/18 06:06 Dose: 12.5 mg Rosuvastatin Calcium (Crestor) 20 mg PO DAILY [facility] Last Admin: 03/31/18 09:00 Dose: 20 mg Senna/Docusate Sodium (Senokot S) 2 tab PO BID PRN PRN Reason: Constipation Sodium Chloride (Flush - Normal Saline) 10 ml IVF Q12HR [facility] Last Admin: 03/31/18 09:02 Dose: 10 ml Sodium Chloride (Flush - Normal Saline) 10 ml IVF PRN PRN PRN Reason: Saline Flush
[2018-04-01] MEDS: Carvedilol 6.25 MG TAB PO SCH (08:17)
[2018-04-01] MEDS: Clopidogrel Bisulfate 75 MG TAB PO SCH (08:18)
[2018-04-01] MEDS: Rosuvastatin 20 MG TAB PO SCH (08:18)
[2018-04-01] MEDS: Famotidine 20 MG TAB PO SCH (08:18)
[2018-04-01] MEDS: DULoxetine 60 MG CAP PO SCH (08:18)
[2018-04-01] MEDS: Folic Acid 1 MG TAB PO SCH (08:18)
[2018-04-01] MEDS: Losartan 25 MG TAB PO SCH (08:23)
[2018-04-01 10:11] LABS: Anion Gap 12 mmol/L (10-20); BUN (Urea Nitrogen) 31 mg/dL (9.8-20.1); Calc. Creatinine Clearance 69 mL/min (70-130); Carbon Dioxide 31 mmol/L (23-31); Chloride 103 mmol/L (98-107); Estimated GFR-MDRD 55; Glucose 120 mg/dL (83-110); Magnesium 2.7 mg/dL (1.6-2.6); Potassium 3.7 mmol/L (3.5-5.1); Sodium 142 mmol/L (136-145)
[2018-04-01 11:22] VITALS: TEMP 97.7
[2018-04-01 14:31] VITALS: BP 131/79
--- NOTE | 2018-04-03 11:27 | DIS ---
DATE OF ADMISSION: 03/27/2018 DATE OF DISCHARGE: 04/01/2018 DISCHARGE DIAGNOSES: As of the followin. Acute systolic heart failure, new diagnosis. 2. Chronic obstructive pulmonary disease exacerbation. 3. Morbid obesity. 4. Diabetes. 5. Rheumatoid arthritis. HOSPITAL COURSE: The patient is a very pleasant 73-year-old female, who initially presented to the hospital on the for shortness of breath. Please refer to the H and P for further details. The patient at this time initially had a CTA done, which indicated no evidence of PE, but had indicators of bilateral pulmonary venous congestion and pleural effusions. The patient at this time was seen by Cardiology and initially underwent an echocardiogram, which indicated an EF of 35% to 40%, and indicated hypokinetic motion of the lateral wall in the left ventricle. [id number] tricuspid stenosis and [id number] mitral regurgitation was noted. The patient at this time also underwent a cardiac cath, which was done on the , which indicated a severely impaired ventricular function, however, normal coronaries. The patient did have her checked, which was 0.50 and her free T4 was normal at 1.02. The patient was optimized on heart failure medication and she will be discharged home. She will follow up with heart failure and also with Cardiology as an outpatient. She was educated on fluid intake and also low salt intake. HOME MEDICATIONS: 1. Coreg 25 mg b.i.d. 2. Plavix 75 mg daily. 3. Folic acid 1 b.i.d. 4. Lasix 20 mg daily. 5. Losartan 12.5 daily. 6. Glyburide and metformin 1 q.a.m. 7. Tramadol 50 mg b.i.d. 8. Protonix 40 mg daily. 9. Duloxetine 60 mg daily. 10. Crestor 20 mg at bedtime. PHYSICAL EXAMINATION: VITAL SIGNS: Temperature of 97.7, pulse 91, respirations 16, pulse oximetry 94% on room air and blood pressure . GENERAL: She is awake, alert, and oriented x3. Does not appear to be in any distress. CV: S1 and S2 present. No murmurs, rubs, or gallops. ABDOMEN: Soft and nontender. Bowel sounds are present x2. EXTREMITIES: No edema. Pedal pulses are present x2. The patient was noted to be mildly tachycardic while she was in the hospital. Her Coreg has been titrated up to the maximum dose. This was discussed with Cardiology, Cardiology felt that they will continue to watch her and was okay from their standpoint to discharge her. The patient was discharged to home on the indicated medications. Initially when she was in the hospital, her creatinine was mildly elevated at 1.32 due to the CTA and the angiogram, however, her repeat creatinine on the was 0.99. The patient was asked to avoid any use of NSAIDs. DISPOSITION: Again, she will be discharged home. FOLLOWUP: She will follow up with her primary care doctor and Cardiology as an outpatient. Job ID: [id number]
== END 2018-04-01 14:44 | disposition home health service (06) | DRG 287 ==
LOC: ERS 12:23 → ERHOLD 19:43 → 2SW 21:22 → 2NO 03-28 13:35
PROVIDERS: ADMIT Internal Medicine; ATTEND Internal Medicine
PROC: 4A023N7 Measurement of Cardiac Sampling and Pressure, Left Heart, Percutaneous Approach (ICD-10-PCS; principal; 2018-03-30)
PROC: B2111ZZ Fluoroscopy of Multiple Coronary Arteries using Low Osmolar Contrast (ICD-10-PCS; 2018-03-30)
PROC: B2151ZZ Fluoroscopy of Left Heart using Low Osmolar Contrast (ICD-10-PCS; 2018-03-30)
DX: I11.0 Hypertensive heart disease with heart failure (principal); J44.1 Chronic obstructive pulmonary disease with (acute) exacerbation; I24.8 Other forms of acute ischemic heart disease; E11.9 Type 2 diabetes mellitus without complications; E78.5 Hyperlipidemia, unspecified; E66.01 Morbid (severe) obesity due to excess calories; Z68.37 Body mass index [BMI] 37.0-37.9, adult; M06.9 Rheumatoid arthritis, unspecified; F32.9 Major depressive disorder, single episode, unspecified; I50.23 Acute on chronic systolic (congestive) heart failure; Z88.5 Allergy status to narcotic agent; Z88.0 Allergy status to penicillin; Z88.8 Allergy status to other drugs, medicaments and biological substances; Z87.891 Personal history of nicotine dependence; Z96.652 Presence of left artificial knee joint
CPT/HCPCS: 36415; 36416; 70450; 71045; 71275; 80048; 80053; 80061; 82550; 82553; 83605; 83735; 83880; 84439; 84443; 84484; 85025; 85347; 87040; 87633; 93005; 93306; 93458; 93798; 94640; 94760; 96365; 96375; 99152; C1769; J0696; J1644; J1650; J1940; J1956; J2250; J2720; J2920; J3010; J7506; J7620

== ENCOUNTER 2018-06-25 11:48 | Emergency (ER) | payer MEDICARE, OTHER ==
--- NOTE | 2018-06-25 12:19 | RAD ---
LEFT SHOULDER 3 VIEWS: Date: 06/25/18 HISTORY: Left shoulder injury following a fall. FINDINGS: Slightly comminuted, minimally displaced fracture involving the left humeral neck with minimal foresh ortening, but no dislocation. Bony demineralization. IMPRESSION: Comminuted, minimally foreshortened left humeral neck fracture without dislocation. POS: [facility]
--- NOTE | 2018-06-25 12:20 | RAD ---
LEFT HIP 2 VIEWS: Date: 06/25/18 HISTORY: Injury to left hip following a fall this morning. FINDINGS: Mild bony demineralization with minimal left hip joint arthrosis. No fracture or dislocation. IMPRESSION: Degenerative changes without fracture or dislocation. POS: [facility]
[2018-06-25] MEDS ORDERED: HYDROcodone/Acetaminophen 5/325 mg Tablet ONE (12:28)
[2018-06-25] MEDS ORDERED: Ketorolac Tromethamine 30 MG/ML VIAL ONE (12:28)
== END 2018-06-25 13:03 | disposition home or self-care (01) ==
LOC: ERS 11:48
DX: S42.212A Unspecified displaced fracture of surgical neck of left humerus, initial encounter for closed fracture (principal); M10.9 Gout, unspecified; E11.9 Type 2 diabetes mellitus without complications; I10 Essential (primary) hypertension; E78.5 Hyperlipidemia, unspecified; Z79.899 Other long term (current) drug therapy; Z79.891 Long term (current) use of opiate analgesic; Z79.84 Long term (current) use of oral hypoglycemic drugs; W18.30XA Fall on same level, unspecified, initial encounter
CPT/HCPCS: 96372; J1885

== ENCOUNTER 2018-06-25 22:31 | Observation (INO) | payer MEDICARE, OTHER ==
[2018-06-25] MEDS ORDERED: Dextrose 50% Abboject 50 ML SYRINGE ONE (22:38)
[2018-06-25 23:21] LABS: #Lymphocytes 1.5 thou/uL (1.20-3.40); #Monocytes 0.7 thou/uL (0.11-0.59); #Neutrophils 6.3 thou/uL (1.40-6.50); %Basophils 0.2 % (0.0-1.0); %Eosinophils 0.2 % (0.0-10.0); %Monocytes 8.2 % (0.0-10.0); %Neutrophils 74.3 % (42.0-75.0); Hemoglobin 9.6 g/dL (12.0-16.0); Mean Corpuscular HGB CONC 31.8 g/dL (32.0-36.0); Mean Corpuscular Hemoglobin 26.9 pg (27.0-31.0); Mean Corpuscular Volume 84.6 fL (78.0-98.0); Mean Platelet Volume 9.4 fL (7.4-10.4); Platelet Count 157 thou/uL (130-400); RBC Distribution Width 16.5 % (11.5-14.5); Red Blood Cell (RBC) Count 3.57 mill/uL (4.20-5.40); White Blood Cell (WBC) Count 8.5 thou/uL (4.8-10.8)
[2018-06-25 23:34] LABS: ALT (SGPT) 18 U/L (8-55); AST (SGOT) 25 U/L (5-34); Albumin 3.4 g/dL (3.4-4.8); Alkaline Phosphatase 71 U/L (40-150); Anion Gap 16 mmol/L (10-20); BUN (Urea Nitrogen) 33 mg/dL (9.8-20.1); Bilirubin, Total 0.3 mg/dL (0.2-1.2); Calc. Creatinine Clearance 0 mL/min (70-130); Calcium 8.3 mg/dL (7.8-10.44); Carbon Dioxide 25 mmol/L (23-31); Chloride 99 mmol/L (98-107); Estimated GFR-MDRD 22; Globulin 1.7 g/dL (2.4-3.5); Glucose 141 mg/dL (83-110); Potassium 3.5 mmol/L (3.5-5.1); Protein, Total 5.1 g/dL (6.0-8.3); Sodium 136 mmol/L (136-145)
[2018-06-25 23:56] LABS: CKMB 1.9 ng/mL (0-6.6)
[2018-06-26] MEDS ORDERED: Ondansetron PF 4 MG/2 ML Vial IVP PRN ×2 (01:50→06:07)
[2018-06-26] MEDS ORDERED: Ondansetron ODT 4 MG TAB SL PRN (01:50)
[2018-06-26] MEDS ORDERED: Acetaminophen 325 MG TAB PO PRN ×2 (01:50→06:06)
[2018-06-26] MEDS ORDERED: Sodium Chloride 0.9% 1,000 ML IV SCH ×2 (02:00→06:15)
[2018-06-26 02:33] LABS: Troponin I 0.021 ng/mL (< 0.028)
[2018-06-26 06:01] LABS: Troponin I 0.014 ng/mL (< 0.028)
[2018-06-26] MEDS ORDERED: Dextrose 50% Abboject 50 ML SYRINGE SLOW IVP PRN (06:06)
[2018-06-26] MEDS ORDERED: Dextrose 5% in Water 1,000 ML IV PRN (06:06)
[2018-06-26] MEDS ORDERED: Senokot S 8.6-50 MG TAB PO PRN (06:07)
[2018-06-26] MEDS ORDERED: Ondansetron ODT 4 MG TAB PO PRN (06:07)
[2018-06-26] MEDS ORDERED: Calcium Carbonate 500 MG ChewTAB PO PRN (06:07)
--- NOTE | 2018-06-26 06:44 | HP ---
PRIMARY CARE PHYSICIAN: Dr. Ortega. PRIMARY HEAD BONE GRINDER: Gab Jama MD CHIEF COMPLAINT: Altered mentation. HISTORY OF PRESENT ILLNESS: The patient is a 73-year-old female with diabetes mellitus type 2, congestive heart failure, and COPD, presented to the emergency room with altered mentation. The patient had a mechanical fall yesterday causing left humeral neck fracture without dislocation. She was evaluated in the emergency room. She received 1 dose of Basye and was discharged home on tramadol. A sling was placed. After reaching home, the patient took 2 tablets of tramadol 50 mg. Later on, the family noticed that the patient was lethargic for which EMS was called. When EMS arrived, her blood glucose was 64 and 52. Blood pressure was in systolic 85 to 88 range. She was brought into the emergency room. No loss of consciousness, double vision, blurring of vision, facial asymmetry reported. The patient missed a breakfast; however, she ate chicken wrap along with a pear at dinner. She takes glyburide with metformin on a daily basis. In the emergency room, initial vital signs showed temperature 98.3, respirations of 18, pulse rate of 72, blood pressure of 73/49 with O2 saturation 86% on room air. Her O2 improved to 95% on 2 L nasal cannula. She received 1 amp of D50 along with IV fluid in the emergency room. Her mentation is gradually improving. PAST MEDICAL HISTORY: 1. Recently diagnosed congestive heart failure, systolic type. 2. COPD. 3. Obesity with a BMI of 35.3. 4. Diabetes mellitus type 2. 5. Rheumatoid arthritis. 6. Dyslipidemia. PAST SURGICAL HISTORY: 1. Left total knee replacement. 2. Appendectomy. 3. Hysterectomy. 4. Gout. 5. Cystoscopy. 6. Left wrist cyst removal. 7. Colonoscopy. ALLERGIES: THE PATIENT IS ALLERGIC TO ASPIRIN, CODEINE, IODINE, AND PENICILLIN. CURRENT HOME MEDICATION: 1. Tramadol as needed. 2. Cymbalta 60 mg daily. 3. Folic acid 1 mg daily. 4. Lasix 40 mg daily. 5. Glyburide/metformin 1.25/250 b.i.d. 6. Plaquenil 200 mg b.i.d. 7. Cozaar 25 mg at bedtime. 8. Protonix 40 mg daily. 9. Crestor 20 mg at bedtime. 10. Carvedilol 25 mg b.i.d. 11. Plavix 75 mg daily. SOCIAL HISTORY: The patient currently lives at home with her family. She quit smoking in 2005. She has approximately 20-pack year smoking history. No current use of alcohol or drug use. FAMILY HISTORY: Mother with Hodgkin lymphoma. Father had pulmonary embolism. Surrogate decision maker is patient's brother, Mr. Dia. She is a full code. REVIEW OF SYSTEMS: All other review of systems were reviewed and were found negative. PHYSICAL EXAMINATION: VITAL SIGNS: Current vital signs showed temperature 98.3, pulse rate of 74, blood pressure 99/54, respirations of 18, O2 saturation 98% on nasal cannula. GENERAL: A 73-year-old female, in no apparent distress, mentation improving. HEENT: Head is atraumatic and normocephalic. Sclerae anicteric. Moist mucous membranes. No oral lesion. NECK: Supple. No JVD appreciated. No carotid bruit. LUNGS: Clear to auscultation bilaterally. No wheezing, rales, or rhonchi. HEART: S1 and S2 present. Regular rate and rhythm. No rubs or gallops. LifeVest in place. ABDOMEN: Soft and nontender. Bowel sounds present. EXTREMITIES: Trace edema in bilateral lower extremity. No calf tenderness. SKIN: Warm and dry. LYMPH NODES: No palpable lymph nodes in the neck. PERIPHERAL/VASCULAR: Radial pulses are palpable bilaterally. MUSCULOSKELETAL: No joint swelling or tenderness. LABORATORY FINDINGS: CBC showed WBC 8.5 with hemoglobin 9.6, hematocrit 30.2, platelets of 157. Chemistry showed sodium 136, potassium 3.5, chloride 99, bicarb 25, BUN 33, creatinine 2.21. Creatinine in April of this year was 0.9. Blood glucose in the emergency room was 57. Troponin 0.029, CK-MB 1.9. Repeat troponin 0.021. BNP 320. Platelets of 157 with hemoglobin 9.6. X-ray of the hip 2 views was negative for fracture. X-ray of the left shoulder earlier today showed left humeral neck fracture without dislocation. EKG by my review showed sinus rhythm with right bundle branch block. IMPRESSION: 1. Toxic metabolic encephalopathy secondary to tramadol along with hypoglycemia. 2. Hypoglycemia secondary to oral hypoglycemics in the setting of acute kidney injury. 3. Acute kidney injury on chronic kidney disease stage 2. 4. Elevated troponin secondary to demand ischemia. 5. Chronic obstructive pulmonary disease. 6. Obesity with a BMI of 35. 7. Diabetes mellitus type 2 with hypoglycemia. 8. Rheumatoid arthritis. 9. Depression, mild, stable. 10. Chronic systolic heart failure. Patient has repeat Echo scheduled for tomorrow as outpatient. PLAN: The patient will be monitored on the telemetry unit. Continue gentle hydration for acute kidney injury. Frequent Accu-Cheks. Resume home medications except for glyburide, metformin, as well as losartan/diuretics. Discontinue tramadol due to altered mentation. A.m. labs. Plan of care was discussed with the patient and the family at the bedside. They stated understanding. Job ID: [id number] MTDDani
[2018-06-26] MEDS: DULoxetine 30 MG CAP PO SCH (08:43)
[2018-06-26] MEDS: Clopidogrel Bisulfate 75 MG TAB PO SCH (08:43)
[2018-06-26] MEDS: Carvedilol 6.25 MG TAB PO SCH ×2 (08:44→18:23)
[2018-06-26] MEDS: Hydroxychloroquine Sulfate 200 MG TAB PO SCH ×2 (08:44→20:19)
[2018-06-26] MEDS: Folic Acid 1 MG TAB PO SCH (08:44)
[2018-06-26] MEDS ORDERED: Aspirin 325 MG TAB PO SCH (09:00)
[2018-06-26 12:23] LABS: Hemoglobin A1c 4.6 % (4.0-6.0)
[2018-06-26] MEDS: HYDROcodone/Acetaminophen 7.5/325 mg Tablet PO PRN (14:52)
[2018-06-26] MEDS: Dextrose 5 %-0.45 % NaCl 1,000 ML IV SCH (16:20)
--- NOTE | 2018-06-26 19:30 | PRG ---
DATE OF SERVICE: 06/26/2018 SUBJECTIVE: The patient is a pleasant 73-year-old female with past medical history significant for recently diagnosed dilated cardiomyopathy, currently wearing a LifeVest, who recently tripped 2 days ago and fractured her proximal left humerus. The patient was sent home in a splint, and given tramadol. At home, the patient did take 2 tramadol, and had an apparent near syncopal event. EMS was called. She was hypotensive and hypoglycemic. She was brought to the emergency room for further evaluation and treatment. On arrival, her creatinine was significantly elevated above baseline at 2.21, baseline is 0.9. She has been admitted for gentle IV resuscitation. On my interview this morning, the patient denies any chest pain or shortness of breath. She is tolerating IV fluids. She continues to complain of pain from her left arm fracture. She is concerned about making her appointment with Dr. Jama tomorrow, he is supposed to perform echocardiogram and make determination versus ICD for returning LifeVest. The patient has had some persistent hypoglycemia this morning, requiring one amp of D50. She has been asymptomatic with her low blood sugar readings. OBJECTIVE: VITAL SIGNS: Blood pressure 118/57, pulse 83, O2 saturation 94% on room air. GENERAL: She is resting comfortably. She is in no acute distress. HEENT: Head; normocephalic, atraumatic. Mucous membranes are moist. Extraocular eye movements intact. NECK: No JVD. No carotid bruits. Trachea midline. CV: S1, S2. Regular rate and rhythm. No appreciable murmurs, rubs, or gallops. LUNGS: Regular respiratory rate and pattern. Clear to auscultation bilaterally. No audible crackles heard. ABDOMEN: Positive bowel sounds. Soft, nontender. Mildly obese. EXTREMITIES: The patient has no pitting edema. +2 DP pulses bilaterally. SKIN: Warm and dry. No rashes. LABORATORY DATA: Creatinine 2.21, BUN 33, sodium 136, potassium 3.5. Hemoglobin A1c is 4.6. Initial troponin 0.29, subsequent troponin 0.021 and 0.014. White blood cell count 8.5, hemoglobin 9.6. ASSESSMENT: 1. Syncope and collapse secondary to hypotension/hypoglycemia 2. Acute kidney injury, creatinine 2.2, baseline 0.9, unclear etiology, questionable secondary to fluid restriction from her recently diagnosed cardiomyopathy. 3. Dilated cardiomyopathy, currently wearing LifeVest. 4. Recent mechanical fall and resulting proximal left humerus fracture. 5. Diabetes mellitus, now with hypoglycemia. PLAN: The patient's clinical picture is somewhat complicated given her recent fall, fracture, and now syncope and acute kidney injury. At this time, the case has been discussed with Dr. Vora. We will go ahead and consult the patient's primary supervisor tree fruit and nut farming, Dr. Jama. I have also ordered a transthoracic echocardiogram. Re-evaluating her EF will be helpful, so that we can be more aggressive with IV fluid resuscitation. We will hold all diabetic medications and continue to monitor her blood sugar closely. Her A1c is 4.6, and likely she can be discharged on just a low dose metformin as opposed to combo pill with glyburide. Continue gentle hydration for now and will trend chemistry. Further recommendations based on hospital course. Continue pain control. Job ID: [id number] MTDD
[2018-06-26] MEDS: Rosuvastatin 20 MG TAB PO SCH (20:19)
[2018-06-26] MEDS: Morphine 4 MG/ML VIAL SLOW IVP PRN (20:19)
[2018-06-27] MEDS: Morphine 4 MG/ML VIAL SLOW IVP PRN ×4 (02:51→18:19)
[2018-06-27] MEDS: HYDROcodone/Acetaminophen 7.5/325 mg Tablet PO PRN (05:54)
[2018-06-27] MEDS: Dextrose 5 %-0.45 % NaCl 1,000 ML IV SCH ×2 (05:55→20:33)
[2018-06-27 06:27] LABS: Band 4 % (5-11); Elliptocytes SLIGHT = 2-5 cells (100X) (0-1/hpf); Hemoglobin 10.3 g/dL (12.0-16.0); Lymphocytes 24 % (21-51); MDiff Complete? YES; Mean Corpuscular HGB CONC 31.7 g/dL (32.0-36.0); Mean Corpuscular Hemoglobin 26.7 pg (27.0-31.0); Mean Platelet Volume 9.6 fL (7.4-10.4); Monocytes 9 % (0-10); Neutrophil 63 % (42-75); Platelet Count 179 thou/uL (130-400); Red Blood Cell (RBC) Count 3.85 mill/uL (4.20-5.40); White Blood Cell (WBC) Count 6.9 thou/uL (4.8-10.8)
[2018-06-27 06:31] LABS: ALT (SGPT) 16 U/L (8-55); AST (SGOT) 30 U/L (5-34); Albumin 3.2 g/dL (3.4-4.8); Alkaline Phosphatase 69 U/L (40-150); BUN (Urea Nitrogen) 27 mg/dL (9.8-20.1); Bilirubin, Total 0.2 mg/dL (0.2-1.2); Calc. Creatinine Clearance 47 mL/min (70-130); Carbon Dioxide 20 mmol/L (23-31); Estimated GFR-MDRD 39; Globulin 2.4 g/dL (2.4-3.5); Glucose 67 mg/dL (83-110); Protein, Total 5.6 g/dL (6.0-8.3)
[2018-06-27 06:43] LABS: Calcium 6.6 mg/dL (7.8-10.44); Chloride 102 mmol/L (98-107); Potassium 3.9 mmol/L (3.5-5.1); Sodium 135 mmol/L (136-145)
[2018-06-27 06:44] LABS: Anion Gap 17 mmol/L (10-20)
[2018-06-27] MEDS: DULoxetine 30 MG CAP PO SCH (09:01)
[2018-06-27] MEDS: Carvedilol 6.25 MG TAB PO SCH ×2 (09:02→17:22)
[2018-06-27] MEDS: Folic Acid 1 MG TAB PO SCH (09:02)
[2018-06-27] MEDS: Clopidogrel Bisulfate 75 MG TAB PO SCH (09:02)
[2018-06-27] MEDS: Hydroxychloroquine Sulfate 200 MG TAB PO SCH ×2 (09:02→20:34)
--- NOTE | 2018-06-27 09:45 | RAD ---
LEFT ELBOW FIVE VIEWS: INDICATIONS: Fall with left elbow pain. COMPARISON: None. FINDINGS: No acute fracture or subluxation is evident. Mild enthesopathic change is seen at the lateral lacy l epicondyle. Positioning in the lateral projection is suboptimal. There is suspicion for soft tiss ue swelling overlying the posterior aspect of the proximal left forearm. IMPRESSION: No definite acute osseous abnormality. POS: [facility]
--- NOTE | 2018-06-27 09:46 | RAD ---
LEFT FOREARM TWO VIEWS: INDICATIONS: Fall. COMPARISON: None. FINDINGS: No acute fracture or subluxation is evident. There is suspicion for soft tissue swelling over the po sterior and medial aspect of the left forearm. Radial capitellar alignment is within normal limits. IMPRESSION: No acute osseous abnormality. POS: [facility]
--- NOTE | 2018-06-27 09:48 | RAD ---
LEFT SHOULDER 3 VIEWS: HISTORY: Left shoulder pain, fracture, recurrent fall. FINDINGS/IMPRESSION: Comparison is made with the exam of 06/25/2018. There is mild interval worsening of the displacement of the comminuted and foreshortened left humeral neck fracture since the exam of 06/25/2018. POS: [facility]
--- NOTE | 2018-06-27 10:47 | PDOC.PN ---
- Subjective Encounter Start Date: 06/27/18 Encounter Start Time: 07:29 Subjective: Patient complaining of left shoulder/lower arm pain. 10/10 in severity. -: States [place] and Morphine help to ease but not fully relieve pain. -: Denies any numbness/tingling in left hand. Pain worse than with first fall. Per daughter she fell onto her left shoulder while on the toilet. Requesting re-imaging of her shoulder as feels the pain is much worse. Initially seen and told she did not require surgery. Arm not in sling but states it was taken off for Echo this morning. No further episodes of lethargy or confusion. - Objective Resuscitation Status - Order Detail: 06/26/18 06:06 Resuscitation Status Routine Resuscitation Status: FULL: Full Resuscitation Vital Signs & Weight: Vital Signs (12 hours) Temp Pulse Resp BP BP Pulse Ox 06/27/18 07:19 98.5 F 95 19 112/59 L 91 L 06/27/18 04:13 96 06/27/18 04:10 96 18 140/66 92 L 06/26/18 23:34 89 18 117/56 L 93 L Weight Weight 174 lb 11.2 oz I&O: 06/26/18 06/27/18 06/28/18 06:59 06:59 06:59 Output Total 500 Balance -500 Result Diagrams: 06/27/18 05:16 06/27/18 05:16 Additional Labs: Accuchecks 06/27/18 06/26/18 06/26/18 04:09 23:37 20:06 POC Glucose 80 102 61 L 06/26/18 06/26/18 06/26/18 17:17 16:03 12:11 POC Glucose 86 50 L* 137 H 06/26/18 11:03 POC Glucose 36 L* Phys Exam - Physical Examination Is in discomfort as found getting into bed after using commode. HEENT: PERRLA, oral pharynx no lesions Neck: supple, full ROM Respiratory: clear to auscultation bilateral Cardiovascular: RRR Gastrointestinal: soft, non-tender, no distention Musculoskeletal: no edema Pain in left shoulder/left elbow and forearm. Tenderness to palpation. Limited ROM. Radial pulses equal bilaterally. No neuro deficits. Neurological: non-focal, normal sensation Psychiatric: normal affect, A&O x 3 Skin: no rash Dx/Plan (1) Recurrent falls Code(s): R29.6 - REPEATED FALLS Status: Acute Plan: Second fall due to episode of lethargy attributed to Ultram. Improvement since off Ultram. Still at risk for falls due to left shoulder injury. Difficulty with mobility and getting out of/into bed. PT/OT eval and rehab screening requested. (2) [id number]-wurqjpa kidney injury Code(s): N17.9 - ACUTE KIDNEY FAILURE, UNSPECIFIED; N18.9 - CHRONIC KIDNEY DISEASE, UNSPECIFIED Status: Acute Plan: Improving, continue gentle hydration (3) Constipation Code(s): K59.00 - CONSTIPATION, UNSPECIFIED Status: Chronic Plan: Chronic constipation, likely worse with narcotis. Stool softeners. (4) DM type 2 (diabetes mellitus, type 2) Status: Chronic Qualifiers: Diabetes mellitus senior living insulin use: without senior living use Diabetes mellitus complication status: with unspecified complications Qualified Code(s) : E11.8 - Type 2 diabetes mellitus with unspecified complications Plan: Continue home meds and ISS. Monitor glucose. (5) HLD (hyperlipidemia) Code(s): E78.5 - HYPERLIPIDEMIA, UNSPECIFIED Status: Chronic Qualifiers: Hyperlipidemia type: unspecified Qualified Code(s): E78.5 - Hyperlipidemia , unspecified (6) HTN (hypertension) Code(s): I10 - ESSENTIAL (PRIMARY) HYPERTENSION Status: Chronic Qualifiers: Hypertension type: essential hypertension Qualified Code(s): I10 - Essential (primary) hypertension Plan: Continue home meds, monitor BP. (7) Morbid obesity Code(s): E66.01 - MORBID (SEVERE) OBESITY DUE TO EXCESS CALORIES Status: Chronic (8) Fracture of left humerus Code(s): S42.302A - UNSP FRACTURE OF SHAFT OF HUMERUS, LEFT ARM, INIT Status: Acute Qualifiers: Encounter type: subsequent encounter Humerus Location: surgical neck Fracture type: closed Plan: Repeat xrays to reassess given repeat fall onto left arm. Xrays of left elbow and forearm given pain and tenderness on exam. Continue analgesia with Morphine and [place]. (9) Dilated cardiomyopathy Code(s): I42.0 - DILATED CARDIOMYOPATHY Status: Chronic Plan: Was due to see Dr. Jama this morning and for outpatient TTE. Echo has been completed this morning and patient awaiting Cardio review. - Plan cont current plan of care, PT/OT ADDENDUM: Patients case discussed with Dr. Vora who agrees with plan above. Repeat Xray shows worsening of comminuted humeral neck fracture with slight displacement. Ortho consult placed. Review of Systems - Review of Systems Constitutional: negative: fever, chills, sweats, weakness, malaise Respiratory: negative: Cough, Dry, Shortness of Breath, Hemoptysis, SOB with Excertion, Pleuritic Pain, Sputum, Wheezing Cardiovascular: negative: chest pain, palpitations, orthopnea, paroxysmal nocturnal dyspnea, edema, light headedness Gastrointestinal: Constipation (Last BM on Wednesday. Typical for her. ). negative : Nausea, Vomiting, Abdominal Pain, Diarrhea, Melena, Hematochezia Genitourinary: negative: Dysuria, Frequency, Incontinence, Hematuria, Retention Musculoskeletal: Shoulder Pain, Arm Pain (Left shoulder pain extending to left forearm. No neuro deficits. ). negative: Neck Pain, Back Pain, Hand Pain, Leg Pain, Foot Pain Skin: negative: Rash, Lesions, Bruising - Medications/Allergies Allergies/Adverse Reactions: Allergies Allergy/AdvReac Type Severity Reaction Status Date / Time aspirin Allergy Rash Verified 06/26/18 01:53 bee venom protein (honey bee) Allergy Verified 06/26/18 01:53 codeine Allergy Rash Verified 06/26/18 01:53 Iodine and Iodide Containing Allergy facial Verified 06/26/18 01:53 Produc swelling Penicillins Allergy Rash Verified 06/26/18 01:53 sulfamethoxazole Allergy Verified 06/26/18 01:53 [From Bactrim] trimethoprim [From Bactrim] Allergy Verified 06/26/18 01:53 Medications: Current Medications Acetaminophen (Tylenol) 650 mg PO Q4H PRN PRN Reason: Headache/Fever/Mild Pain (1-3) Last Admin: 06/26/18 11:25 Dose: 650 mg Hydrocodone Bitart/Acetaminophen ([place] 7.5/325) 1 tab PO Q4H PRN PRN Reason: Mild Pain (1-3) Last Admin: 06/27/18 05:54 Dose: 1 tab Calcium Carbonate (Tums) 1,000 mg PO Q4H PRN PRN Reason: Heartburn or Indigestion Carvedilol (Coreg) 12.5 mg PO BID-[facility] Last Admin: 06/27/18 09:02 Dose: Not Given Clopidogrel Bisulfate (Plavix) 75 mg PO [facility]ILY [facility] Last Admin: 06/27/18 09:02 Dose: 75 mg Dextrose/Water (Dextrose 50%) 25 gm SLOW IVP PRN PRN PRN Reason: Hypoglycemia Last Admin: 06/26/18 11:25 Dose: 25 gm Duloxetine HCl (Cymbalta) 60 mg PO [facility] Last Admin: 06/27/18 09:01 Dose: 60 mg Folic Acid (Folvite) 1 mg PO [facility] Last Admin: 06/27/18 09:02 Dose: 1 mg Glucagon (Glucagon) 1 mg IM PRN PRN PRN Reason: Hypoglycemia Hydroxychloroquine Sulfate (Plaquenil) 200 mg PO BID [facility] Last Admin: 06/27/18 09:02 Dose: 200 mg Dextrose/Water (D5w) 1,000 mls @ 0 mls/hr IV .Q0M PRN PRN Reason: Hypoglycemia Dextrose/Sodium Chloride (D5 1/2 Ns) 1,000 mls @ 70 mls/hr IV .[id number] [facility] Last Admin: 06/27/18 05:55 Dose: 1,000 mls Morphine Sulfate (Morphine) 2 mg SLOW IVP Q4H PRN PRN Reason: Pain IF UNABLE TO TAKE PO Last Admin: 06/27/18 09:00 Dose: 2 mg Ondansetron HCl (Zofran Odt) 4 mg PO Q6H PRN PRN Reason: Nausea/Vomiting Ondansetron HCl (Zofran) 4 mg IVP Q6H PRN PRN Reason: Nausea/Vomiting Rosuvastatin Calcium (Crestor) 20 mg PO [facility] Last Admin: 06/26/18 20:19 Dose: 20 mg Senna/Docusate Sodium (Senokot S) 2 tab PO BID PRN PRN Reason: Constipation Sodium Chloride (Flush - Normal Saline) 10 ml IVF PRN PRN PRN Reason: Saline Flush
[2018-06-27] MEDS: Senokot S 8.6-50 MG TAB PO SCH (20:34)
[2018-06-27] MEDS: Rosuvastatin 20 MG TAB PO SCH (20:34)
--- NOTE | 2018-06-27 23:56 | CON ---
DATE OF CONSULTATION: HISTORY OF PRESENT ILLNESS: Jocelynn Smith is a 73-year-old white female, initially evaluated in March 2018. 2-1/2 years to 3 years prior to that, she was to undergo left total knee replacement and was evaluated by Dr. Conti. He told her that her heart was weak and that she probably should not undergo surgery. However, she elected to anyway. She was on Lasix in the past, has been off for several years when she was seen in March. She also gave a history of increasing peripheral edema over 2 weeks and increasing shortness of breath after walking 20 feet to 30 feet prior to the March admission. She came to the emergency room complaining of increased shortness of breath. She was given intravenous Lasix and diuresed over 1 L. Her breathing improved. Echocardiogram at that time revealed ejection fraction of 35% to 40% . It was recommended that she undergo cardiac catheterization. At catheterization; however, her ejection fraction was 10% to 15%. She had normal coronary arteries. She was placed on carvedilol, ARB, and diuretics, and discharged with a Lifevest. She was seen in the office for followup on May 06, 2018. She denied any shortness of breath or PND. She was walking over 200 feet at that time. She denied any leg edema. She was to return this next week for repeat echocardiogram and consideration of either ICD or discontinuation of her LifeVest. Instead, she is admitted now with altered mental status. She apparently had a fall on the 25 of June, sustained a left humeral neck fracture without dislocation. She received a dose of [place] and discharged home on tramadol. She was very lethargic after taking pain medications. EMS was called. Her blood sugar was 64 and 52. Blood pressure was 85 systolic. She was brought to the emergency room. She was given intravenous fluids as well as an amp of D50 and had improvement in her mentation. PAST MEDICAL HISTORY: Hypertension, diabetes, hyperlipidemia, arthritis, COPD, obesity. OPERATIONS: Left total knee replacement, appendectomy, hysterectomy, left wrist cyst removal. ALLERGIES: THE PATIENT IS ALLERGIC TO ASPIRIN, CODEINE, IODINE, AND PENICILLIN. MEDICATIONS: At home include, 1. Carvedilol 25 mg b.i.d. 2. Clopidogrel 75 daily. 3. Cymbalta 60 daily. 4. Folic acid 1 mg daily. 5. Lasix 40 mg q.a.m. 6. Plaquenil 200 mg b.i.d. 7. Losartan 25 at bedtime. 8. Protonix 40 daily. 9. Rosuvastatin 20 mg at bedtime. 10. Tramadol 50 q.4 hours p.r.n. SOCIAL HISTORY: She smoked one-half pack per day, but stopped in 2005. She does not drink. FAMILY HISTORY: Brother had bypass surgery. Father of pulmonary embolism. REVIEW OF SYSTEMS: A 12-point review of systems is, otherwise, unremarkable. PHYSICAL EXAMINATION: VITAL SIGNS: Blood pressure 118/65, pulse of 92(when she was admitted, her blood pressure was 93/53). HEENT: PERRL. NECK: Supple. CHEST: Clear. CARDIAC: S1 and S2 normal without any S3, S4, or murmurs. ABDOMEN: Normal bowel sounds without tenderness. Abdomen is obese. EXTREMITIES: Revealed no clubbing, cyanosis, or edema. NEUROLOGIC: Grossly intact. SKIN: Warm and dry. LABORATORY DATA: EKG revealed normal sinus rhythm with right bundle-branch block. Repeat echocardiogram today revealed mild left ventricular dysfunction with ejection fraction 45% to 50%, mild left atrial enlargement, mild mitral regurgitation, mild tricuspid regurgitation. Hemoglobin 10.3, hematocrit 32.4, white count 6900, platelets 179,000. Sodium 135, potassium 3.6, chloride 102, carbon dioxide 20, BUN 27, creatinine 1.34, creatinine on admission was 2.21, and BUN was 29. IMPRESSION: 1. Chronic systolic heart failure with improvement in ejection fraction from 10 % to 15% to 45% to 50%. 2. Nonischemic cardiomyopathy with dramatic improvement. 3. Normal coronary arteries. 4. Relative hypotension. 5. Diabetes. 6. Hypercholesterolemia. 7. Former smoker. 8. Obesity. 9. Iodine allergy. 10. True aspirin allergy. 11. Acute kidney injury. PLAN: At the present time, ARB and diuretics will be held as has been done. Also carvedilol dose has been reduced. She may discontinue her LifeVest and return it to the company with her current ejection fraction. Job ID: [id number] [facility]
[2018-06-28] MEDS: Morphine 4 MG/ML VIAL SLOW IVP PRN ×4 (00:45→16:47)
--- NOTE | 2018-06-28 03:20 | CON ---
DATE OF CONSULTATION: CHIEF COMPLAINT: Left shoulder pain. HISTORY OF PRESENT ILLNESS: Ms. Smith is a 73-year-old female who has fallen twice recently. She has had a recent history of altered mentation likely related to pain medication. She fell 4 days ago and sustained a left proximal humerus fracture. She took pain medicine for this and became somewhat confused. She fell again. She has been admitted to the hospital now for observation. Orthopedics was consulted regarding her proximal humerus fracture. She is currently comfortable. She is resting in a sling. She is not having any significant pain currently at rest. PAST MEDICAL HISTORY: Congestive heart failure, COPD, obesity, diabetes, rheumatoid arthritis, and hyperlipidemia. PAST SURGICAL HISTORY: Previous left total knee arthroplasty, appendectomy, hysterectomy, cystoscopy, left wrist ganglion cyst removal, and colonoscopy. ALLERGIES: TO ASPIRIN, CODEINE, IODINE, AND PENICILLIN. SOCIAL HISTORY: The patient denies tobacco, alcohol, or drug use. She has a past history of smoking, but none current. FAMILY MEDICAL HISTORY: Noncontributory. REVIEW OF SYSTEMS: Positive for left shoulder pain with movement. Otherwise, negative 10-point review of systems. PHYSICAL EXAMINATION: VITAL SIGNS: Temperature is 98.5, pulse is 88, respiratory rate is 18, oxygen saturation 93% on room air, and blood pressure is 129/64. GENERAL: The patient is alert and oriented, in no apparent distress. Breathing comfortably. ABDOMEN: Soft, nontender, and nondistended. MUSCULOSKELETAL: The patient's left upper extremity is in a sling. She is neurovascularly intact. She can wiggle her fingers. Two-second capillary refill. Palpable pulses. She has ecchymosis and swelling to the elbow level from the shoulder. DIAGNOSTIC STUDIES: Images: X-rays of the left humerus demonstrate a proximal humeral neck fracture with minimal displacement. IMPRESSION: Left proximal humerus fracture in an elderly female, status post fall. PLAN: At this point, the patient is being observed for her altered mental status. Hopefully, once this clears, she will be able to be discharged back home. She is aware not to take strong pain medications. She can continue her sling for comfort for the shoulder. She can be treated non-operatively. I would like to see her in the clinic in 2 weeks for repeat x-ray evaluation to ensure that she has had continued good alignment. I have given her my phone number for followup visits. Job ID: [id number]
[2018-06-28 05:30] LABS: Anion Gap 13 mmol/L (10-20); BUN (Urea Nitrogen) 19 mg/dL (9.8-20.1); Calc. Creatinine Clearance 61 mL/min (70-130); Calcium 8.5 mg/dL (7.8-10.44); Carbon Dioxide 26 mmol/L (23-31); Chloride 102 mmol/L (98-107); Estimated GFR-MDRD 51; Glucose 233 mg/dL (83-110); Potassium 3.7 mmol/L (3.5-5.1); Sodium 137 mmol/L (136-145)
[2018-06-28] MEDS: Carvedilol 6.25 MG TAB PO SCH ×2 (09:21→16:47)
[2018-06-28] MEDS: Hydroxychloroquine Sulfate 200 MG TAB PO SCH ×2 (09:22→20:16)
[2018-06-28] MEDS: Losartan 25 MG TAB PO SCH (09:22)
[2018-06-28] MEDS: Folic Acid 1 MG TAB PO SCH (09:22)
[2018-06-28] MEDS: DULoxetine 30 MG CAP PO SCH (09:22)
[2018-06-28] MEDS: Furosemide 20 MG TAB PO SCH (09:23)
[2018-06-28] MEDS: Clopidogrel Bisulfate 75 MG TAB PO SCH (09:23)
[2018-06-28] MEDS: Senokot S 8.6-50 MG TAB PO SCH ×2 (09:24→20:16)
[2018-06-28] MEDS: Polyethylene Glycol 3350 17 GM Packet PO SCH ×2 (09:24→09:31)
[2018-06-28] MEDS: HYDROcodone/Acetaminophen 7.5/325 mg Tablet PO PRN ×2 (09:28→22:00)
--- NOTE | 2018-06-28 16:23 | PDOC.PN ---
- Subjective Encounter Start Date: 06/28/18 Encounter Start Time: 12:22 Subjective: Patient resting comfortably. Denies any issues overnight. -: Continues with discomfort in the left shoulder but states it is controlled. -: Eager to go home but awaiting rehab placement options. Reports mild cough, productive for thick green/zhang sputum. Attributes it to allergies. Denies any hemoptysis. CP or SOB. Has remained afebrile. No n/v. Tolerating oral intake. No [place] or dizziness. - Objective Resuscitation Status - Order Detail: 06/26/18 06:06 Resuscitation Status Routine Resuscitation Status: FULL: Full Resuscitation Vital Signs & Weight: Vital Signs (12 hours) Temp Pulse Pulse Pulse Resp BP BP 06/28/18 11:40 97.7 F 87 46 H 06/28/18 09:42 87 88 139/68 140/68 06/28/18 08:36 104 H 95 134/85 137/81 06/28/18 08:25 97.9 F 94 16 BP Pulse Ox 06/28/18 11:40 142/66 H 92 L 06/28/18 09:42 06/28/18 08:36 06/28/18 08:25 141/83 H 95 Weight Weight 177 lb 4.8 oz I&O: 06/27/18 06/28/18 06/29/18 06:59 06:59 06:59 Intake Total 2545 350 Output Total 2200 Balance 345 350 Result Diagrams: 06/27/18 05:16 06/28/18 04:41 Additional Labs: Accuchecks 06/28/18 06/28/18 06/28/18 11:23 04:25 00:15 POC Glucose 189 H 159 H 195 H 06/27/18 06/27/18 20:34 16:51 POC Glucose 166 H 118 H Phys Exam - Physical Examination Constitutional: NAD HEENT: PERRLA, sclera anicteric, oral pharynx no lesions Neck: supple, full ROM Respiratory: clear to auscultation bilateral Cardiovascular: RRR Gastrointestinal: soft, non-tender, no distention Musculoskeletal: no edema, pulses present Neurological: normal sensation, moves all 4 limbs Left arm sling in place. Normal color/sensation to left hand. Psychiatric: normal affect, A&O x 3 Skin: no rash, normal turgor Dx/Plan (1) Recurrent falls Code(s): R29.6 - REPEATED FALLS Status: Chronic (2) Vvjyy-rg-tcbhkof kidney injury Code(s): N17.9 - ACUTE KIDNEY FAILURE, UNSPECIFIED; N18.9 - CHRONIC KIDNEY DISEASE, UNSPECIFIED Status: Resolved Plan: Renal function has improved. Tolerating fluid intake. (3) Constipation Code(s): K59.00 - CONSTIPATION, UNSPECIFIED Status: Chronic (4) DM type 2 (diabetes mellitus, type 2) Status: Chronic Qualifiers: Diabetes mellitus exterminator helper insulin use: without mcfp use Diabetes mellitus complication status: with unspecified complications Qualified Code(s) : E11.8 - Type 2 diabetes mellitus with unspecified complications (5) HLD (hyperlipidemia) Code(s): E78.5 - HYPERLIPIDEMIA, UNSPECIFIED Status: Chronic Qualifiers: Hyperlipidemia type: unspecified Qualified Code(s): E78.5 - Hyperlipidemia , unspecified (6) HTN (hypertension) Code(s): I10 - ESSENTIAL (PRIMARY) HYPERTENSION Status: Chronic Qualifiers: Hypertension type: essential hypertension Qualified Code(s): I10 - Essential (primary) hypertension (7) Morbid obesity Code(s): E66.01 - MORBID (SEVERE) OBESITY DUE TO EXCESS CALORIES Status: Chronic (8) Fracture of left humerus Code(s): S42.302A - UNSP FRACTURE OF SHAFT OF HUMERUS, LEFT ARM, INIT Status: Acute Qualifiers: Encounter type: subsequent encounter Humerus Location: surgical neck Fracture type: closed Fracture alignment: displaced Plan: Cleared by Ortho to continue with sling and follow-up as outpatient. (9) Chronic systolic heart failure Code(s): I50.22 - CHRONIC SYSTOLIC (CONGESTIVE) HEART FAILURE Status: Acute Plan: Seen by Dr. Jama who has made adjustments to meds based on improved EF noted on repeat Echo. ARB and diuretic discontinued. Carvedilol decreased. Life vest no longer required. - Plan cont current plan of care, incentive spirometry C/o cough +zhang/green sputum. CXR. -: Patient awaiting rehab placement options. * .
[2018-06-28 16:49] LABS: #Lymphocytes 1.7 thou/uL (1.20-3.40); #Monocytes 0.5 thou/uL (0.11-0.59); #Neutrophils 2.8 thou/uL (1.40-6.50); %Basophils 0.5 % (0.0-1.0); %Eosinophils 0.2 % (0.0-10.0); %Lymphocytes 34.1 % (21.0-51.0); %Monocytes 10.1 % (0.0-10.0); Mean Corpuscular HGB CONC 31.5 g/dL (32.0-36.0); Mean Corpuscular Hemoglobin 26.1 pg (27.0-31.0); Mean Corpuscular Volume 82.9 fL (78.0-98.0); Mean Platelet Volume 8.9 fL (7.4-10.4); Platelet Count 185 thou/uL (130-400); RBC Distribution Width 16.6 % (11.5-14.5); Red Blood Cell (RBC) Count 3.84 mill/uL (4.20-5.40); White Blood Cell (WBC) Count 5.1 thou/uL (4.8-10.8)
[2018-06-28 17:12] LABS: ALT (SGPT) 22 U/L (8-55); AST (SGOT) 36 U/L (5-34); Albumin 3.6 g/dL (3.4-4.8); Alkaline Phosphatase 78 U/L (40-150); Anion Gap 13 mmol/L (10-20); BUN (Urea Nitrogen) 20 mg/dL (9.8-20.1); Bilirubin, Total 0.3 mg/dL (0.2-1.2); Calc. Creatinine Clearance 61 mL/min (70-130); Calcium 9.1 mg/dL (7.8-10.44); Carbon Dioxide 31 mmol/L (23-31); Chloride 100 mmol/L (98-107); Estimated GFR-MDRD 52; Globulin 2.6 g/dL (2.4-3.5); Glucose 137 mg/dL (83-110); Potassium 3.7 mmol/L (3.5-5.1); Protein, Total 6.2 g/dL (6.0-8.3); Sodium 140 mmol/L (136-145)
--- NOTE | 2018-06-28 17:47 | RAD ---
CHEST TWO VIEWS: 06/28/18 HISTORY: Cough. Low O2 saturation. COMPARISON: Chest radiograph 04/27/18. FINDINGS: Lungs are without confluent air space consolidation, pneumothorax or effusion. Heart size is enlarged . Increased pericardial fat on the left cardiophrenic border. There is a fracture of the left humeral neck with comminution and foreshortening. IMPRESSION: Left humeral neck fracture. No acute intrathoracic abnormality. POS: [facility]
[2018-06-28] MEDS: Rosuvastatin 20 MG TAB PO SCH (20:16)
[2018-06-29] MEDS: HYDROcodone/Acetaminophen 7.5/325 mg Tablet PO PRN ×2 (06:24→10:59)
[2018-06-29 07:57] LABS: Anion Gap 15 mmol/L (10-20); BUN (Urea Nitrogen) 16 mg/dL (9.8-20.1); Calc. Creatinine Clearance 70 mL/min (70-130); Calcium 9.1 mg/dL (7.8-10.44); Carbon Dioxide 26 mmol/L (23-31); Chloride 102 mmol/L (98-107); Estimated GFR-MDRD 62; Glucose 105 mg/dL (83-110); Potassium 4.1 mmol/L (3.5-5.1); Sodium 139 mmol/L (136-145)
[2018-06-29] MEDS: Carvedilol 6.25 MG TAB PO SCH (08:32)
[2018-06-29] MEDS: DULoxetine 30 MG CAP PO SCH (08:32)
[2018-06-29] MEDS: Clopidogrel Bisulfate 75 MG TAB PO SCH (08:32)
[2018-06-29] MEDS: Folic Acid 1 MG TAB PO SCH (08:33)
[2018-06-29] MEDS: Senokot S 8.6-50 MG TAB PO SCH (08:33)
[2018-06-29] MEDS: Furosemide 20 MG TAB PO SCH (08:33)
[2018-06-29] MEDS: Losartan 25 MG TAB PO SCH (08:33)
[2018-06-29] MEDS: Hydroxychloroquine Sulfate 200 MG TAB PO SCH (08:33)
[2018-06-29] MEDS: Polyethylene Glycol 3350 17 GM Packet PO SCH (08:38)
[2018-06-29 11:59] VITALS: TEMP 98.7
[2018-06-29 12:45] VITALS: BP 134/63
--- NOTE | 2018-06-29 15:45 | DIS ---
DATE OF ADMISSION: 06/26/2018 DATE OF DISCHARGE: 06/29/2018 DISCHARGE DIAGNOSES: 1. Fracture of left humerus, slightly displaced. 2. Constipation. 3. Type 2 diabetes mellitus. 4. Hypertension. 5. Hyperlipidemia. 6. Morbid obesity. 7. Chronic systolic heart failure. CONSULTING PHYSICIANS: 1. Dr. Jama, Cardiology. 2. Dr. Palomino, Orthopedics. HOSPITAL COURSE: Ms. Smith is a 73-year-old woman, who was admitted after presenting with a recurrent fall onto the left shoulder after already being diagnosed with a humerus fracture on imaging done on June 25, 2018. A repeat x-ray demonstrated mild interval worsening of the displacement of the comminuted and foreshortened left humeral neck fracture. She was evaluated by Dr. Palomino of Orthopedics and advised to continue wearing the sling for comfort. She was recommended conservative management with no indication for surgery with plans to follow up as an outpatient in 2 weeks for repeat imaging to assess for good healing/alignment. What precipitated the fall according to the patient and her daughter were her medications, which caused her to be drowsy and caused her to fall while sat on the toilet. The daughter states that she has been having difficulty helping her mobilize around the home since she was discharged from the initial presentation following the first fall. During her hospital stay, she has had no change in her mental status. She has undergone laboratory studies, which have been unremarkable. She was evaluated by Dr. Jama, her nuclear fuel processing technician, and underwent a repeat echo that showed mildly depressed left ventricular function with an EF at 45% to 50%. This was notably improved from previous echocardiogram. Per Dr. Jama, previous echocardiogram showed an EF of 35% to 40% with a catheterization done showing an EF of 10% to 15%. Given the notable improvement, he has recommended to discontinue losartan and her diuretics, and also to reduce her carvedilol, which she takes 25 mg twice daily down to 12.5 mg twice daily. The patient was also felt to no longer need the LifeVest. On day of discharge, she is doing well and has been medically cleared for discharge to inpatient rehab. REVIEW OF SYSTEMS: The patient has been tolerating oral intake without any nausea or vomiting. Denies having any abdominal pain or cramping. No headaches or dizziness. No fevers, chills, or sweats. Denies any chest pain, palpitations, or shortness of breath. She is feeling significantly stronger than she did when she initially came in. She has mild discomfort in her shoulder, which is well controlled. Denies having any urinary complaints or bowel changes. All other review of systems are negative. PHYSICAL EXAMINATION: GENERAL: The patient appears well developed and well nourished. She is in no acute distress. She is found sat upright and in great spirits. VITAL SIGNS: Temperature 98.7, pulse 92, respirations 18, O2 saturation 95% on room air, and blood pressure 131/70. HEENT: Normocephalic and atraumatic. Pupils are equal, round, and reactive to light. Sclerae are without icterus. Oropharynx is clear. NECK: Supple. No lymphadenopathy. LUNGS: Clear to auscultation bilaterally without wheezes, rales, or rhonchi. CARDIAC: Regular rate and rhythm without audible murmurs, rubs, or gallops. ABDOMEN: Soft, nontender, and nondistended. Normoactive bowel sounds present. EXTREMITIES: No clubbing, cyanosis, or edema. NEUROLOGIC: Alert and oriented x3. SKIN: Without rash or jaundice. MUSCULOSKELETAL: The patient has left upper extremity in sling. Normal sensation to her hand with normal color and bilateral radial pulses present. Normal mobility of her hand, wrist, and fingers. LABORATORY DATA: White blood count 5.1, hemoglobin 10, hematocrit 31.8, and platelets 185. Sodium 139, potassium 4.1, chloride 102, BUN 16, and GFR 62. LFTs unremarkable. IMAGING DATA: 1. On 06/27/2018, elbow x-ray, no definite acute osseous abnormality. 2. Left forearm x-ray, no acute osseus abnormality. There is suspicion for soft tissue swelling over the posteromedial aspect of the left forearm. 3. Left shoulder x-ray, 06/27/2018. Comparison made with x-ray on 06/25/2018. Mild interval worsening of displacement of the comminuted and foreshortened left humeral neck fracture. 4. Echo, overall left ventricular function is mildly depressed. EF is 45% to 50%. Left atrium mildly dilated. Mild mitral regurgitation and mild tricuspid regurgitation present. CONDITION: Stable at discharge. DIET: Heart healthy. ACTIVITY: As tolerated. DISCHARGE MEDICATIONS: 1. The patient is advised to discontinue losartan and furosemide. 2. Coreg decreased from 25 mg p.o. twice daily to 12.5 mg p.o. twice daily. 3. The patient otherwise advised to resume all other home medications. FOLLOWUP: 1. She will follow up with Dr. Palomino in 2 weeks as advised for repeat imaging of the left shoulder. 2. She will follow up with Dr. Jama as advised by him. 3. Advised to follow up with her primary care physician within 1 to 2 weeks. DISPOSITION: The patient is medically cleared for discharge today to inpatient rehab. The patient's case was discussed with Dr. Vora, who agrees with plan of care as described above. Job ID: [id number]
--- NOTE | 2018-07-02 17:15 | EKG ---
Test Reason : Blood Pressure : / mmHG Vent. Rate : 085 BPM Atrial Rate : 085 BPM P-R Int : 156 ms QRS Dur : 164 ms QT Int : 476 ms P-R-T Axes : 025 081 096 degrees QTc Int : 566 ms Normal sinus rhythm Right bundle branch block Abnormal ECG Confirmed by MATTHEW LEO ([id number]), video effects editor SWEETIE GARCIA ([id number]) on 07/02/2018 5:14:45 PM Referred By: Confirmed By:MATTHEW LEO
== END 2018-06-29 14:25 ==
LOC: ERS 22:31 → 2SW 06-26 00:10
PROVIDERS: ADMIT Internal Medicine; ATTEND Internal Medicine
DX: G92 Toxic encephalopathy (principal); E16.2 Hypoglycemia, unspecified; S42.351D Displaced comminuted fracture of shaft of humerus, right arm, subsequent encounter for fracture with routine healing; N17.9 Acute kidney failure, unspecified; I11.0 Hypertensive heart disease with heart failure; I50.22 Chronic systolic (congestive) heart failure; E11.9 Type 2 diabetes mellitus without complications; E78.00 Pure hypercholesterolemia, unspecified; F32.9 Major depressive disorder, single episode, unspecified; J44.9 Chronic obstructive pulmonary disease, unspecified; E66.01 Morbid (severe) obesity due to excess calories; E78.5 Hyperlipidemia, unspecified; M06.9 Rheumatoid arthritis, unspecified; Z79.84 Long term (current) use of oral hypoglycemic drugs; Z68.35 Body mass index [BMI] 35.0-35.9, adult; Z79.899 Other long term (current) drug therapy; Z88.0 Allergy status to penicillin; Z88.5 Allergy status to narcotic agent; Z88.8 Allergy status to other drugs, medicaments and biological substances; Z87.891 Personal history of nicotine dependence; W19.XXXA Unspecified fall, initial encounter
CPT/HCPCS: 71046; 73030; 73080; 73090; 80048 ×2; 80053 ×3; 82550; 82553; 82652; 82962 ×5; 83036; 83605; 83880 ×2; 83970; 84484 ×3; 85025 ×3; 93005; 93306; 94760; 96361 ×3; 96374; 96375; 96376 ×3; 97116; 97139 ×3; 97530; 99285; G0378 ×3; 36415; 36416; J2270

== ENCOUNTER 2018-07-12 05:10 | Observation (INO) | payer MEDICARE, OTHER ==
[2018-07-12 06:22] LABS: #Basophils 0.1 thou/uL (0.0-0.2); #Eosinphils 0.1 thou/uL (0.0-0.7); #Lymphocytes 1.6 thou/uL (1.20-3.40); #Monocytes 1.2 thou/uL (0.11-0.59); #Neutrophils 7.8 thou/uL (1.40-6.50); %Basophils 0.6 % (0.0-1.0); %Eosinophils 0.7 % (0.0-10.0); %Lymphocytes 15.4 % (21.0-51.0); %Monocytes 10.7 % (0.0-10.0); %Neutrophils 72.5 % (42.0-75.0); Hemoglobin 10.2 g/dL (12.0-16.0); Mean Corpuscular HGB CONC 31.4 g/dL (32.0-36.0); Mean Corpuscular Volume 82.6 fL (78.0-98.0); Mean Platelet Volume 7.3 fL (7.4-10.4); Platelet Count 443 thou/uL (130-400); RBC Distribution Width 16.8 % (11.5-14.5); Red Blood Cell (RBC) Count 3.94 mill/uL (4.20-5.40); White Blood Cell (WBC) Count 10.7 thou/uL (4.8-10.8)
[2018-07-12 06:47] LABS: ALT (SGPT) 12 U/L (8-55); AST (SGOT) 22 U/L (5-34); Albumin 3.7 g/dL (3.4-4.8); Alkaline Phosphatase 111 U/L (40-150); Anion Gap 11 mmol/L (10-20); BUN (Urea Nitrogen) 11 mg/dL (9.8-20.1); Bilirubin, Total 0.5 mg/dL (0.2-1.2); Calc. Creatinine Clearance 0 mL/min (70-130); Calcium 9.9 mg/dL (7.8-10.44); Carbon Dioxide 29 mmol/L (23-31); Chloride 105 mmol/L (98-107); Estimated GFR-MDRD 60; Potassium 5.2 mmol/L (3.5-5.1); Protein, Total 6.7 g/dL (6.0-8.3); Sodium 140 mmol/L (136-145)
[2018-07-12 07:06] LABS: Bilirubin Negative (Negative); Blood, Urine Negative (Negative); Clarity CLEAR (Clear); Glucose, Urine (Dipstick) Negative (Negative); Leukocyte Negative (Negative); Nitrite Negative (Negative); Protein, Urine (Dipstick) Trace mg/dL (Neg-Trace); Specific Gravity, Urine 1.021 (1.002-1.036); Urobilinogen 0.2 mg/dL (0.2-1.0); pH, Urine 5.5 (5.0-9.0)
[2018-07-12 07:12] LABS: Glucose 49 mg/dL (83-110)
--- NOTE | 2018-07-12 07:38 | RAD ---
FExam:Left shoulder 3 views HISTORY: Fall. Pain COMPARISON: 06/27/2018 FINDINGS: Redemonstration of a comminuted fracture involving the left humeral neck with foreshortenin g. No significant callus formation. IMPRESSION: Redemonstration of proximal left humerus fracture.
--- NOTE | 2018-07-12 07:42 | RAD ---
FExam:Left wrist 3 views HISTORY: Pain. Fall. COMPARISON: None FINDINGS: Intercarpal and radiocarpal joint spaces are preserved. No fracture. No cortical irregulari ty or periosteal reaction IMPRESSION: Unremarkable left wrist 3 views. No posttraumatic change.
--- NOTE | 2018-07-12 07:44 | RAD ---
FExam:Left elbow 4 views HISTORY: Pain. Fall. COMPARISON: 06/27/2018 FINDINGS: No fracture. No cortical irregularity. No periosteal reaction. No significant joint fluid. IMPRESSION: No fracture.
--- NOTE | 2018-07-12 07:49 | RAD ---
FExam:Left wrist 3 views HISTORY: Pain COMPARISON: 07/12/2018, at 5:34 AM FINDINGS: Intercarpal and radiocarpal joint spaces are preserved. No fracture. No cortical irregulari ty or periosteal reaction. IMPRESSION: 1. No fracture. 2. No significant interval change.
--- NOTE | 2018-07-12 07:49 | CT ---
CT OF HEAD NONCONTRAST: INDICATION: Hypoglycemia, falling episode. COMPARISON: Reference is made to 03/17/2018 exam. FINDINGS: There is no ventriculomegaly, acute intracranial hemorrhage, mass effect, or midline shift. Mild chr onic ischemic disease of the cerebral white matter is present. There is mucosal thickening of the pa ranasal sinus. IMPRESSION: 1. No acute intracranial hemorrhage or mass effect. 2. Mild chronic microvascular ischemic disease. POS: VEE
[2018-07-12] MEDS ORDERED: Dextrose 50% Abboject 50 ML SYRINGE ONE (08:05)
[2018-07-12] MEDS ORDERED: Dexamethasone 10 MG/ML VIAL ONE (08:05)
[2018-07-12] MEDS ORDERED: Acetaminophen 325 MG TAB PO PRN (10:03)
[2018-07-12] MEDS ORDERED: Dextrose 5% in Water 1,000 ML IV PRN ×2 (10:14→17:21)
[2018-07-12] MEDS ORDERED: traMADol HCl 50 MG TAB PO PRN (10:14)
[2018-07-12] MEDS ORDERED: Dextrose 50% Abboject 50 ML SYRINGE SLOW IVP PRN ×2 (10:14→17:21)
--- NOTE | 2018-07-12 11:18 | HP ---
CHIEF COMPLAINT: Found down this morning. HISTORY OF PRESENT ILLNESS: This patient is a 73-year-old female, who was recently admitted to this facility following a fall. The patient had previously fallen and had left humeral fracture that was not indicated for surgery. She was placed in a sling during her last admission on June 26. The patient was noted to have some hypotension and some hypoglycemia. She had reassessment of her cardiac function , which had previously been noted to be profoundly suppressed. However, repeat echo showed an increase in her ejection fraction to around 40%. Therefore, she had her medications reduced. Her Coreg was decreased to 12.5 b.i.d. from 25 b.i.d., and her losartan and furosemide were completely discontinued. The patient has been doing well otherwise at home. She reports that she monitors her blood sugar, although she has not in the last couple of days. Typically, her blood sugars running in the 70s to 80s range. She has been taking her medications routinely. Her sister is with her and she has been filling the pills for her, so that she can stay on course with her medications. The patient also reports that she has been eating normally during this time. This morning, however, the patient's sister found her yelling out, appeared to be in some discomfort. The patient does not have significant memory of these events. She was brought to the emergency department and EMS initially noted the patient to have severe hypoglycemia. She has received D50 and an amp of D5 , as well as dose of Decadron 10 mg injection in the emergency department. Her blood sugars have gone from 49-60 to 79-184. She is able to eat a regular meal and is completely back to her normal cognition at this time. She does continue to report some pain in her left arm and extending down into her left wrist. She does have a sling, but her sister reports that every time she goes in to check on her in the morning that the patient has taken the sling off. REVIEW OF SYSTEMS: The patient has had some dizziness and headache yesterday. She also reports that she has had decreased appetite. She states she believes she needs to be back on Lasix because without it, she does not feel she is "emptying the bladder well." She denies any peripheral edema or shortness of breath. All other systems were reviewed and all pertinent positives and negatives noted in the history of present illness. PAST MEDICAL HISTORY: Notable for CHF with cardiomyopathy with most recent echocardiogram revealing improvement over ejection fraction to around 40%. She has COPD, obesity. She reports some history of kidney problems in the past, which have apparently resolved. She has hypertension, hyperlipidemia, rheumatoid arthritis , and diabetes mellitus. PAST SURGICAL HISTORY: Cataract-ectomy, hysterectomy, knee replacement, left wrist cyst removal, appendectomy. CURRENT MEDICATIONS: 1. Pantoprazole 40 mg p.o. daily. 2. Duloxetine 60 mg p.o. daily. 3. Crestor 20 mg p.o. at bedtime. 4. Folate 1 mg p.o. daily. 5. Carvedilol 12.5 one p.o. b.i.d. 6. Glyburide-metformin 1.25/250, one p.o. daily. 7. Plaquenil 300 mg daily. 8. Plavix 75 mg daily. ALLERGIES: ASPIRIN, BEE VENOM, CODEINE WHICH CAUSES A RASH. IODINE CAUSING FACIAL SWELLING. PENICILLINS CAUSING RASH. BACTRIM. PHYSICAL EXAMINATION: VITAL SIGNS: BP 169/97, pulse 97, respirations 20, temperature 98.2, O2 saturation 98% on room air. GENERAL APPEARANCE: Age-appropriate female, in no distress. She is slightly obese, awake, alert, oriented, pleasant, cooperative. HEENT: PERRL. No OP lesions. NECK: Supple and symmetric. HEART: Regular rate and rhythm. No murmurs, gallops, or rubs. LUNGS: Clear to auscultation bilaterally. ABDOMEN: Soft, nontender, and nondistended. Positive bowel sounds. No masses and no organomegaly. EXTREMITIES: There is no cyanosis, clubbing, or edema of the lower extremities. Left upper extremity has persistent ecchymoses from the upper arm down to the elbow. NEUROLOGIC: She appears to be neurovascularly intact of the left upper extremity distal to her injury. LABORATORY DATA: White count 10.7, hemoglobin 10.2, platelets 443. Sodium 140, potassium 5.2, chloride 105, CO2 is 29, BUN 11, creatinine 0.92, glucose 184, calcium 9.9, AST 22, ALT 12, and albumin is 3.7. Urinalysis negative. CT of the brain is negative except for microvascular disease. X-rays of the left wrist, elbow and shoulder revealed persistent evidence of the humeral fracture but no new findings. IMPRESSION AND PLAN: 1. Severe hypoglycemia. The patient has required several rounds of dextrose and steroids in order to try to combat the persistent hypoglycemia. It is presumed that this is secondary to the patient's oral hypoglycemic/sulfonylurea agent. Her medications will be held. She appears to be coming around at this point. We will not continue any D5 on her now. However, if she has recurrence of hypoglycemia , we will do that. We will continue Accu-Cheks and have p.r.n. in place should she become hypoglycemic again. I hope to keep her in observation overnight. Her blood sugars can be maintained. She can likely be discharged with either the metformin alone or with no medications depending on the level of her blood sugars. 2. History of congestive heart failure. The patient appears to be stable. She has no evidence of decompensation. Her last echo did show improvement of her overall ejection fraction. Do not anticipate any change in her medications at this time. 3. History of chronic obstructive pulmonary disease, stable, well compensated. No change. 4. Hyperlipidemia. Continue with statin. 5. Hypertension. The patient's blood pressure is running a bit high. We will continue to monitor and keep her on her usual home medications. 6. Left humeral fracture. We will ask PT to re-evaluate her to see if there is a better sling option for her that she can be more compliant with. In the meantime, continue with p.r.n. pain management. Job ID: [id number] MATHEW
[2018-07-12 11:22] VITALS: BMI 34.2
[2018-07-12] MEDS ORDERED: Dextrose 10% in Water 250 ML IV SCH (11:30)
[2018-07-12] MEDS: Carvedilol 6.25 MG TAB PO SCH (17:19)
[2018-07-12] MEDS: HumaLOG 300 UNITS/3 ML VIAL SC PRN (18:14)
[2018-07-12] MEDS: Hydroxychloroquine Sulfate 200 MG TAB PO SCH (20:43)
[2018-07-12] MEDS ORDERED: Benzonatate 100 MG CAP PO SCH (21:00)
[2018-07-12] MEDS ORDERED: Rosuvastatin 20 MG TAB PO SCH (21:00)
[2018-07-13] MEDS: HumaLOG 300 UNITS/3 ML VIAL SC PRN (06:28)
[2018-07-13 07:03] LABS: Anion Gap 13 mmol/L (10-20); BUN (Urea Nitrogen) 14 mg/dL (9.8-20.1); Calc. Creatinine Clearance 74 mL/min (70-130); Calcium 9.7 mg/dL (7.8-10.44); Carbon Dioxide 28 mmol/L (23-31); Chloride 105 mmol/L (98-107); Estimated GFR-MDRD 67; Glucose 214 mg/dL (83-110); Potassium 4.4 mmol/L (3.5-5.1); Sodium 142 mmol/L (136-145)
[2018-07-13] MEDS ORDERED: metFORMIN 500 MG TAB PO SCH (08:00)
[2018-07-13] MEDS: Hydroxychloroquine Sulfate 200 MG TAB PO SCH (08:55)
[2018-07-13] MEDS: Carvedilol 6.25 MG TAB PO SCH (08:55)
[2018-07-13] MEDS ORDERED: DULoxetine 60 MG CAP PO SCH (09:00)
[2018-07-13] MEDS ORDERED: Clopidogrel Bisulfate 75 MG TAB PO SCH (09:00)
[2018-07-13] MEDS ORDERED: Folic Acid 1 MG TAB PO SCH (09:00)
--- NOTE | 2018-07-13 09:24 | PRG ---
DATE OF SERVICE: 07/13/2018 SUBJECTIVE: The patient feels fine this morning. She says she slept well overnight, tolerating the left upper extremity sling well. OBJECTIVE: VITAL SIGNS: Temperature 98.1, pulse 85, respirations 18, O2 sat 94% on room air, and blood pressure 149/82. GENERAL APPEARANCE: Age-appropriate female. Awake, alert, oriented, pleasant, cooperative. HEART: Regular rate and rhythm. LUNGS: Clear bilaterally. ABDOMEN: Soft and nontender. EXTREMITIES: No cyanosis, clubbing, or edema. Left upper extremity in a sling with some persistent ecchymoses in the upper arm area. LABORATORY DATA: Chemistries normal. Blood sugar 214. IMPRESSION AND PLAN: 1. Severe hypoglycemia, appears to be largely resolved. She received glucose and steroids in the emergency department. I have held her medications. We will discontinue her glyburide and metformin combination and this morning, she will receive 500 mg of metformin. We will watch her little bit through the morning if her blood sugars remain reasonable. We will go ahead and discharge her to follow up with her PCP on Wednesday, which is already scheduled. I do anticipate she will still have a little hyperglycemia today because of the Decadron she received yesterday. 2. History of congestive heart failure, stable, well compensated. 3. Hypertension. Blood pressures are still running a bit high, but better this morning. Again, can follow up with her outpatient provider. 4. History of chronic obstructive pulmonary disease, well compensated, stable. 5. Hyperlipidemia. Continue statin. 6. Left humeral fracture. Appreciate physical therapy working to get her back into a sling that she can tolerate. She can follow up with Orthopedic Surgery. Job ID: [id number]
[2018-07-13 12:04] VITALS: BP 133/76; TEMP 97.4
== END 2018-07-13 13:54 | disposition home or self-care (01) ==
LOC: ERS 05:10 → 2SW 11:19
PROVIDERS: ADMIT Internal Medicine; ATTEND Internal Medicine
DX: E11.649 Type 2 diabetes mellitus with hypoglycemia without coma (principal); I11.0 Hypertensive heart disease with heart failure; I50.9 Heart failure, unspecified; I42.9 Cardiomyopathy, unspecified; J44.9 Chronic obstructive pulmonary disease, unspecified; E78.5 Hyperlipidemia, unspecified; M06.9 Rheumatoid arthritis, unspecified; S42.292D Other displaced fracture of upper end of left humerus, subsequent encounter for fracture with routine healing; E66.9 Obesity, unspecified; Z68.34 Body mass index [BMI] 34.0-34.9, adult; Z79.02 Long term (current) use of antithrombotics/antiplatelets; Z79.84 Long term (current) use of oral hypoglycemic drugs; Z79.899 Other long term (current) drug therapy; Z88.0 Allergy status to penicillin; Z88.1 Allergy status to other antibiotic agents; Z88.5 Allergy status to narcotic agent; Z88.8 Allergy status to other drugs, medicaments and biological substances; Z91.030 Bee allergy status; Z91.041 Radiographic dye allergy status; W19.XXXD Unspecified fall, subsequent encounter
CPT/HCPCS: 51701; 70450; 73030; 73080; 73110; 80048; 80053; 81003; 82962 ×2; 85025; 96374; 96375; 97139; 97760; 99291; G0378 ×2; 36415; 36416; A4353; J1100

== ENCOUNTER 2019-03-31 15:10 | Outpatient (CLI) | payer MEDICARE, OTHER ==
--- NOTE | 2019-03-31 15:39 | RAD ---
EXAM: XR Chest Pa Lat STANDARD PROVIDED CLINICAL HISTORY: Preop COMPARISON: 06/28/2018 FINDINGS: Cardiac silhouette remains enlarged. Vascular calcification involves the aortic arch. No focal consol idation, pleural fluid or pneumothorax apparent. Chronic ununited left proximal humeral fracture. IMPRESSION: Cardiomegaly and atherosclerosis without evidence for an acute cardiopulmonary process.
== END 2019-03-31 15:11 | disposition home or self-care (01) ==
LOC: BICRAD 15:10
PROVIDERS: ATTEND Family Medicine
DX: Z01.818 Encounter for other preprocedural examination (principal); I51.7 Cardiomegaly; I70.90 Unspecified atherosclerosis
CPT/HCPCS: 71046

== ENCOUNTER 2019-04-20 08:56 | Outpatient (CLI) | payer MEDICARE, OTHER ==
[2019-04-20 10:01] LABS: #Eosinphils 0.2 thou/uL (0.0-0.7); #Lymphocytes 2.6 thou/uL (1.20-3.40); #Monocytes 0.6 thou/uL (0.11-0.59); #Neutrophils 2.6 thou/uL (1.40-6.50); %Basophils 0.7 % (0.0-1.0); %Eosinophils 3.3 % (0.0-10.0); %Lymphocytes 43.4 % (21.0-51.0); %Monocytes 9.7 % (0.0-10.0); %Neutrophils 42.9 % (42.0-75.0); Hemoglobin 11.2 g/dL (12.0-16.0); Mean Corpuscular Hemoglobin 26.1 pg (27.0-31.0); Mean Corpuscular Volume 81.4 fL (78.0-98.0); Mean Platelet Volume 7.8 fL (7.4-10.4); Platelet Count 271 thou/uL (130-400); RBC Distribution Width 13.4 % (11.5-14.5); Red Blood Cell (RBC) Count 4.29 mill/uL (4.20-5.40)
[2019-04-20 10:23] LABS: Anion Gap 14 mmol/L (10-20); BUN (Urea Nitrogen) 18 mg/dL (9.8-20.1); Calc. Creatinine Clearance 0 mL/min (70-130); Calcium 9.6 mg/dL (7.8-10.44); Carbon Dioxide 24 mmol/L (23-31); Chloride 105 mmol/L (98-107); Estimated GFR-MDRD 58; Glucose 115 mg/dL (83-110); Sodium 139 mmol/L (136-145)
[2019-04-20 10:32] LABS: INR-International Normal Ratio 1.1; Prothrombin Time 14.2 SEC (12.0-14.7)
[2019-04-20 13:33] LABS: Bacteria/HPF None Seen HPF (None Seen); Bilirubin Negative (Negative); Blood, Urine Negative (Negative); Clarity Clear (Clear); Glucose, Urine (Dipstick) Normal (Negative); Leukocyte 75 Leu/uL (Negative); Nitrite Negative (Negative); Protein, Urine (Dipstick) Negative (Neg-Trace); RBC/HPF 0-3 HPF (0-3); Squamous Epithelial 0-3 HPF (0-3); Urobilinogen Normal mg/dL (Less than 2); WBC/HPF 0-3 HPF (0-3)
== END 2019-04-20 08:57 | disposition home or self-care (01) ==
LOC: LABBT 08:56
PROVIDERS: ATTEND Orthopaedic Surgery
DX: Z01.818 Encounter for other preprocedural examination (principal); M17.11 Unilateral primary osteoarthritis, right knee
CPT/HCPCS: 80048; 81001; 85025; 85610; 87081; 87086; 93005; 93010

== ENCOUNTER → 2019-05-01 | Day surgery (SDC) | payer MEDICARE, OTHER ==
[2019-04-20 09:07] VITALS: BMI 36.5
--- NOTE | 2019-04-27 08:45 | HP ---
HISTORY OF PRESENT ILLNESS: The patient is a 74-year-old female with a several year history of progressive problems with the right knee without specific injury. She has had progressive symptoms despite rest, restriction of activities, pain medication, lifestyle adjustments, and previous cortisone injections. The pain is now interfering with day-to-day activity including walking, getting dressed, and sleeping. PAST MEDICAL HISTORY: Please see the old chart. The patient has had a previous left total knee replacement by Dr. Cordova. She has a history of hypertension, diabetes, and atherosclerotic cardiovascular disease. She is on Plavix which she has stopped 1 week prior to anticipated surgery. She has been seen and cleared for surgery by Dr. Jama. She has a history of possible rheumatoid arthritis, followed by Dr. Mojica. She also has a history of hiatal hernia and reflux, urinary incontinence, and gout. CURRENT MEDICATIONS: 1. Multivitamins. 2. Plavix. 3. Protonix. 4. Duloxetine. 5. Tramadol. 6. Hydrocodone. 7. Hydroxychloroquine. 8. Crestor. 9. Coreg. 10. Metformin. ALLERGIES: SHE IS ALLERGIC TO ASPIRIN, CODEINE, PENICILLIN, AND IODINE. FAMILY HISTORY: Otherwise unremarkable. SOCIAL HISTORY: Otherwise unremarkable. REVIEW OF SYSTEMS: Otherwise unremarkable. PHYSICAL EXAMINATION: GENERAL: A healthy female. HEENT: Unremarkable. NECK: Supple. CHEST: Clear. HEART: Regular rate and rhythm. ABDOMEN: Soft, nontender. PELVIC, RECTAL, BREASTS: Deferred. EXTREMITIES: Pertinent findings with the right knee. There is puffiness over the proximal tibia and knee joint. There is no definite effusion. There are mild venous varicosities. There is tenderness and crepitus over the medial joint line. Range of motion is 5 to 115 degrees. There is no instability. Distal pulses 1+. Neurovascular exam is intact. There is right antalgic gait. There is no pain with range of motion of the right hip. DIAGNOSTIC STUDIES: X-rays of the right knee reveal [id number] collapse medially with progression of previous x-rays. There is a left total knee replacement in good position. IMPRESSION: 1. Degenerative arthritis of right knee, possible component of rheumatoid arthritis. 2. Status post left total knee replacement. 3. History of hypertension. 4. History of diabetes. 5. History of atherosclerotic cardiovascular disease. PLAN: Right total knee replacement. The nature of the surgery, length of recovery, potential complications such as infection, loss of motion, incomplete relief, delayed wound healing, neurovascular injury, thromboembolic phenomena, possible transfusion, and need for revision have been discussed in detail. Job ID: [id number]
== END ==
LOC: SDC 06:54
PROVIDERS: ATTEND Orthopaedic Surgery
DX: M17.11 Unilateral primary osteoarthritis, right knee (principal); I10 Essential (primary) hypertension; E11.9 Type 2 diabetes mellitus without complications; I25.10 Atherosclerotic heart disease of native coronary artery without angina pectoris; M10.9 Gout, unspecified; Z53.9 Procedure and treatment not carried out, unspecified reason; Z79.02 Long term (current) use of antithrombotics/antiplatelets; Z79.84 Long term (current) use of oral hypoglycemic drugs; Z79.899 Other long term (current) drug therapy; Z88.0 Allergy status to penicillin; Z88.2 Allergy status to sulfonamides; Z88.5 Allergy status to narcotic agent; Z88.8 Allergy status to other drugs, medicaments and biological substances; Z91.030 Bee allergy status; Z91.041 Radiographic dye allergy status; Z96.652 Presence of left artificial knee joint

== ENCOUNTER 2019-05-08 06:53 | Day surgery (SDC) | payer MEDICARE, OTHER ==
[2019-05-05 14:24] VITALS: BMI 36.1
--- NOTE | 2019-05-08 07:18 | HP ---
ADDENDUM: Please see the previous history and physical dated 04/27/2019. The patient was initially scheduled for right total knee replacement on 05/01/2019, but surgery was rescheduled for 05/08/2019, because she forgot to stop Plavix. She has now been off the Plavix and will be admitted at this time for right total knee replacement. Job ID: [id number]
[2019-05-08] MEDS ORDERED: Fentanyl 100 MCG/2 ML VIAL ONE ×4 (08:13→13:09)
[2019-05-08] MEDS ORDERED: Midazolam HCl 2 mg/2 ml Vial ONE (08:13)
[2019-05-08] MEDS ORDERED: Levofloxacin 500 mg/D5W 100 ml Premix Bag ONE (08:16)
[2019-05-08] MEDS ORDERED: Tranexamic Acid 1,000 MG/10 ML VIAL ONE ×2 (08:16→11:43)
[2019-05-08] MEDS ORDERED: Vancomycin 1.5 GRAM/300 ML BAG 1.5 GM/300 ML BAG ONE (08:16)
[2019-05-08] MEDS ORDERED: Sodium Chloride 0.9% 100 ML ONE (08:16)
[2019-05-08] MEDS ORDERED: Lidocaine 1% w/Epinephrine 1:100K 20 ML VIAL ONE (09:08)
[2019-05-08] MEDS ORDERED: Bupivacaine 0.25% HCL 30 ML VIAL ONE (09:08)
[2019-05-08] MEDS ORDERED: Zolpidem Tartrate 5 MG TAB PO PRN ×2 (09:22→13:58)
[2019-05-08] MEDS ORDERED: Promethazine HCl 25 MG/ML VIAL IM PRN ×2 (09:22→10:36)
[2019-05-08] MEDS ORDERED: Acetaminophen 325 MG TAB PO PRN ×2 (09:22→13:58)
[2019-05-08] MEDS ORDERED: Ropivacaine HCl/PF 250 ML in Premix Bag 1 BAG NERVE BLCK SCH (09:22)
[2019-05-08] MEDS ORDERED: Ondansetron PF 4 MG/2 ML Vial IVP PRN ×2 (09:22→13:58)
[2019-05-08] MEDS ORDERED: HYDROcodone/Acetaminophen 10/325 mg Tablet PO PRN ×3 (09:22→13:58)
[2019-05-08] MEDS ORDERED: Fentanyl 100 MCG/2 ML VIAL IV PRN (09:23)
[2019-05-08] MEDS ORDERED: PROPOFOL 200 MG/20 ML VIAL ONE (10:30)
[2019-05-08] MEDS ORDERED: Ropivacaine 0.2% HCl/PF (40 MG/20 ML VIAL) ONE (10:30)
[2019-05-08] MEDS ORDERED: Lidocaine 1% PF 5 ML VIAL ONE (10:30)
[2019-05-08] MEDS ORDERED: Ropivacaine 0.5% HCl/PF (150 MG/30 ML VIAL) ONE (10:30)
[2019-05-08] MEDS ORDERED: Ondansetron PF 4 MG/2 ML Vial ONE (10:30)
[2019-05-08] MEDS ORDERED: Promethazine HCl 25 MG/ML VIAL SLOW IVP PRN ×2 (10:36→13:58)
[2019-05-08] MEDS ORDERED: Ondansetron HCl/PF 4 MG/2 ML Vial IVP PRN (10:36)
[2019-05-08] MEDS ORDERED: Tranexamic Acid 1,000 MG in Sodium Chloride 0.9% 100 ML IVPB SCH ×2 (11:30→13:58)
--- NOTE | 2019-05-08 12:22 | RAD ---
RIGHT KNEE 2 VIEWS: Date: 05/08/2019 HISTORY: Postop evaluation. FINDINGS/IMPRESSION: Knee prosthesis has been placed. Postoperative changes are noted. Components appear adequately positi oned. POS: BI
[2019-05-08] MEDS ORDERED: Fentanyl 100 MCG/2 ML VIAL SLOW IVP PRN ×2 (13:58)
[2019-05-08] MEDS ORDERED: traMADol HCl 50 MG TAB PO PRN (13:58)
[2019-05-08] MEDS ORDERED: diphenhydrAMINE 25 MG CAP PO PRN (13:58)
[2019-05-08] MEDS: Sodium Chloride 0.9% 1,000 ML IV SCH (15:23)
[2019-05-08] MEDS ORDERED: Dextrose 50% Abboject 50 ML SYRINGE SLOW IVP PRN (15:35)
[2019-05-08] MEDS: Ketorolac Tromethamine 30 MG/ML VIAL IVP SCH ×2 (15:35→17:04)
[2019-05-08] MEDS ORDERED: HumaLOG 300 UNITS/3 ML VIAL SC PRN ×2 (15:35)
[2019-05-08] MEDS ORDERED: Dextrose 5% in Water 1,000 ML IV PRN (15:35)
--- NOTE | 2019-05-08 16:18 | OP ---
DATE OF PROCEDURE: 05/08/2019 GARNETT FEEDER: Sam Her PA-C ANESTHESIA: General plus adductor canal and sciatic nerve blocks. PREOPERATIVE DIAGNOSIS: Degenerative arthritis, right knee. POSTOPERATIVE DIAGNOSIS: Degenerative arthritis, right knee. PROCEDURE PERFORMED: 1. Right total knee replacement with computer-assisted navigation with cemented [place] [employer] components (#2 femoral component, #2 primary tibial baseplate with 11 mm CS plastic insert, and all-plastic S27 patellar component). DESCRIPTION OF PROCEDURE: After satisfactory anesthesia was induced in supine position, sequential compression device was placed on the nonoperative leg throughout the procedure. The right leg was then prepped and draped in routine sterile fashion. The right leg was elevated and exsanguinated with an Esmarch bandage, and the tourniquet was inflated to 300 mmHg. A gently curved medial parapatellar incision was made, carried down to the subcutaneous tissues, and bleeding points were controlled with Bovie cautery. Medial parapatellar arthrotomy was performed. Patella was dislocated laterally, and portions of the fat pad were excised for exposure. There was marked degenerative arthritis of the knee, especially medially with large areas of exposed bone. Meniscal remnants and osteophytes were removed. Using the miDrive pinless navigation system and appropriate guides, the distal femoral and proximal tibial articular surfaces were excised with an oscillating saw to accept the trial components. It was felt that #2 femoral component and #2 tibial baseplate with 11 mm CS plastic insert gave appropriate size, fit, stability, and correction of the preoperative deformity. The patellar articular surface was excised to accept an all-plastic S27 patellar component. There were good range of motion and good patellar tracking. The trial components were removed. The knee was copiously irrigated with the pulsatile lavage. The bony surfaces were thoroughly cleaned and dried. The permanent components were then cemented in a single stage using 1 pack of cement premixed with 1 g of tobramycin powder. Excess cement was removed. There were again good fit and stability of the components. The knee was then copiously irrigated. The medial retinaculum and quadriceps mechanism were closed with interrupted #2 Vicryl and running #2 Quill. The skin and subcutaneous tissues were infiltrated with a mixture of 30 mL of 0.25% Marcaine and 20 mL of 1% lidocaine with epinephrine. Subcutaneous tissues were closed with running 0 Quill suture, and the skin was closed with running subcuticular 3-0 Monoderm and SurgiSeal skin adhesive. A sterile bulky compressive dressing was applied, and the tourniquet was deflated after 71 minute. The foot promptly pinked up. A sequential compression device was placed on the operative leg, and she was awakened and taken to the recovery room in stable condition. There were no apparent intraoperative complications. ESTIMATED BLOOD LOSS: Less than 100 mL. Job ID: [id number]
--- NOTE | 2019-05-08 16:22 | CON ---
DATE OF CONSULTATION: PRIMARY CARE PHYSICIAN: Dr. Ortega. PRIMARY TEAM: Orthopedics, Dr. Abdi. REASON FOR CONSULTATION: Medical management. HISTORY OF PRESENT ILLNESS: This is a 74-year-old white female with a history of arthritis of the right knee, in for total right knee replacement, which was done earlier today. She has been having some pain postoperatively. Other than that, she has no other complaints. PAST MEDICAL HISTORY: 1. Systolic congestive heart failure with most recent ejection fraction of 40%. 2. COPD. 3. Obesity. 4. Intermittent kidney failure, that has resolved. 5. Hypertension. 6. Hyperlipidemia. 7. Rheumatoid arthritis. 8. Diabetes mellitus, on oral hypoglycemics. PAST SURGICAL HISTORY: 1. Cataract surgery. 2. Hysterectomy. 3. Appendectomy. 4. Left total knee replacement. 5. Left wrist cyst removal. SOCIAL HISTORY: No tobacco, alcohol or illicit drug use. She is a . She is a full code. Her son, Dong Mott, was her medical decision maker. FAMILY HISTORY: Brother with a CABG in his 50s. Also, lots of hypertension, diabetes, and hyperlipidemia in the family. ALLERGIES: 1. ASPIRIN. 2. HONEY BEES. 3. CODEINE. 4. PENICILLIN. CURRENT MEDICATIONS: 1. Plavix 75 mg daily. 2. Carvedilol 12.5 mg twice a day. 3. Cymbalta 60 mg daily. 4. Folic acid 1 mg daily. 5. Plaquenil 200 mg twice a day. 6. Losartan 25 mg twice a day. 7. Metformin 500 mg twice a day. 8. Protonix 40 mg daily. 9. Rosuvastatin 20 mg at night. REVIEW OF SYSTEMS: CONSTITUTIONAL: No fevers. No chills. EYES: No double vision or blurred vision. ENT: No congestion, drainage or sore throat. CARDIOVASCULAR: No chest pain. No palpitations or racing heart. PULMONARY: No coughing, wheezing or shortness of breath. GASTROINTESTINAL: No abdominal pain. No nausea or vomiting. No diarrhea or constipation. GENITOURINARY: No dysuria or hematuria. MUSCULOSKELETAL: No muscle aches or joint pains except for the right knee, which is somewhat painful after the surgery. SKIN: No rashes or lesions she has noted. NEUROLOGIC: No numbness, tingling or focal weakness. PHYSICAL EXAMINATION: VITAL SIGNS: Blood pressure 181/75, pulse 96, respirations 18, and O2 sat 97% on 2 L nasal cannula, and temperature 97.6. GENERAL: This is a well-developed, well-nourished, elderly white female, in no acute distress. HEENT: Pupils equal, round, and reactive to light. Oropharynx clear without lesions, erythema or exudate. NECK: Supple. No lymphadenopathy. No thyroid nodules or enlargement. No JVD. HEART: Regular rate and rhythm. No murmurs, rubs or gallops. LUNGS: Clear to auscultation bilaterally. No wheezes, crackles or rhonchi. ABDOMEN: Soft, nontender to palpation. Normoactive bowel sounds. No hepatosplenomegaly or other masses. EXTREMITIES: No clubbing, cyanosis or edema. She does have the postoperative dressing on the right knee and SCDs on bilateral lower extremities. SKIN: No rashes or lesions noted. NEUROLOGIC: Intact strength and sensation in all extremities. No facial droop. PSYCHIATRIC: Alert and oriented x3. Normal mood and affect. LABORATORY DATA: Complete metabolic panel without any significant abnormalities. CBC with hemoglobin of 11.2 and hematocrit of 34.9, the rest was normal. Coagulation profile normal. Urinalysis, negative for infection. ASSESSMENT: 1. Right knee arthritis status post total right knee arthroplasty. 2. Systolic congestive heart failure, not currently in exacerbation. We will resume home medications and monitor for volume status closely. We will put her on a fluid restriction and healthy heart diet along with diabetic diet. 3. Hypertension. We will resume home blood pressure medications and monitor blood pressure closely. 4. Diabetes mellitus, type 2. We will resume home medications and check fingerstick blood sugars q.a.c. and at bedtime along with low insulin sliding scale. 5. Previous problems with kidney failure. We will check creatinine daily. 6. Hyperlipidemia, resume statin. 7. Rheumatoid arthritis. We will resume home medications. 8. Gastrointestinal prophylaxis. Continue the patient's Protonix. 9. Deep venous thrombosis prophylaxis. We will continue the patient's SCDs. CODE STATUS: I did discuss with the patient. She is a full code. Should she be incapacitated, Dong Mott would be her medical decision maker. Job ID: [id number]
[2019-05-08] MEDS: Carvedilol 6.25 MG TAB PO SCH (16:39)
[2019-05-08] MEDS: metFORMIN 500 MG TAB PO SCH (16:40)
[2019-05-08] MEDS ORDERED: Vancomycin HCl 1.5 GM in Sodium Chloride 0.9% 250 ML 300 ML IVPB SCH (20:00)
[2019-05-08] MEDS: Rosuvastatin 20 MG TAB PO SCH (20:49)
[2019-05-08] MEDS: Losartan 25 MG TAB PO SCH (20:50)
[2019-05-08] MEDS: Hydroxychloroquine Sulfate 200 MG TAB PO SCH (20:50)
[2019-05-08] MEDS: Senokot S 8.6-50 MG TAB PO SCH (20:50)
[2019-05-09] MEDS: Ketorolac Tromethamine 30 MG/ML VIAL IVP SCH ×5 (00:12→23:55)
[2019-05-09] MEDS: HYDROcodone/Acetaminophen 10/325 mg Tablet PO PRN ×3 (00:16→08:21)
[2019-05-09] MEDS: Sodium Chloride 0.9% 1,000 ML IV SCH ×3 (00:23→20:20)
[2019-05-09 05:41] LABS: #Eosinphils 0.1 thou/uL (0.0-0.7); #Lymphocytes 1.8 thou/uL (1.20-3.40); #Monocytes 1.1 thou/uL (0.11-0.59); #Neutrophils 5.6 thou/uL (1.40-6.50); %Basophils 0.6 % (0.0-1.0); %Eosinophils 0.6 % (0.0-10.0); %Lymphocytes 20.7 % (21.0-51.0); %Monocytes 12.3 % (0.0-10.0); %Neutrophils 65.8 % (42.0-75.0); Hemoglobin 10.2 g/dL (12.0-16.0); Mean Corpuscular Hemoglobin 26.4 pg (27.0-31.0); Mean Corpuscular Volume 82.6 fL (78.0-98.0); Mean Platelet Volume 7.6 fL (7.4-10.4); Platelet Count 223 thou/uL (130-400); RBC Distribution Width 13.6 % (11.5-14.5); Red Blood Cell (RBC) Count 3.84 mill/uL (4.20-5.40); White Blood Cell (WBC) Count 8.5 thou/uL (4.8-10.8)
[2019-05-09 06:02] LABS: Anion Gap 10 mmol/L (10-20); BUN (Urea Nitrogen) 12 mg/dL (9.8-20.1); Calc. Creatinine Clearance 76 mL/min (70-130); Calcium 8.6 mg/dL (7.8-10.44); Carbon Dioxide 26 mmol/L (23-31); Chloride 103 mmol/L (98-107); Estimated GFR-MDRD 66; Glucose 100 mg/dL (83-110); Potassium 4.4 mmol/L (3.5-5.1); Sodium 135 mmol/L (136-145)
[2019-05-09] MEDS: Rivaroxaban 10 MG TAB PO SCH (08:20)
[2019-05-09] MEDS: DULoxetine 60 MG CAP PO SCH (08:20)
[2019-05-09] MEDS: Carvedilol 6.25 MG TAB PO SCH ×2 (08:20→17:41)
[2019-05-09] MEDS: Multivitamin W/ Minerals 1 TAB PO SCH (08:20)
[2019-05-09] MEDS: Senokot S 8.6-50 MG TAB PO SCH ×2 (08:20→20:19)
[2019-05-09] MEDS: metFORMIN 500 MG TAB PO SCH ×2 (08:20→17:27)
[2019-05-09] MEDS: Hydroxychloroquine Sulfate 200 MG TAB PO SCH ×2 (08:21→20:18)
[2019-05-09] MEDS: Losartan 25 MG TAB PO SCH ×2 (08:21→20:19)
[2019-05-09] MEDS: Folic Acid 1 MG TAB PO SCH (08:21)
[2019-05-09] MEDS ORDERED: Prevnar 13-Val Conj/PF 0.5 ML SYRINGE IM ONE (09:00)
[2019-05-09] MEDS ORDERED: Ondansetron PF 4 MG/2 ML Vial IVP PRN (14:45)
--- NOTE | 2019-05-09 15:16 | PDOC.HOSPP ---
- Subjective Subjective: nauseated, on zofran, will hold metformin. BP slightly high. - Objective Vital Signs & Weight: Vital Signs (12 hours) Temp Pulse Resp BP BP Pulse Ox 05/09/19 11:53 97.5 F L 82 16 115/76 92 L 05/09/19 08:22 95 05/09/19 08:20 141/80 H 05/09/19 07:33 98.0 F 95 16 102/65 95 05/09/19 04:24 97.5 F L 98 16 128/72 96 Weight Admit Weight 179 lb Weight 179 lb I&O: 05/08/19 05/09/19 05/10/19 06:59 06:59 06:59 Intake Total 1680 Output Total 975 Balance 705 Result Diagrams: 05/09/19 05:09 05/09/19 05:09 Additional Labs: Accuchecks 05/09/19 05/09/19 05/08/19 11:54 05:08 20:49 POC Glucose 125 H 117 H 131 H 05/08/19 15:55 POC Glucose 90 Hospitalist ROS - Medication Medications: Active Medications Generic Name Dose Route Start Last Admin Trade Name Freq PRN Reason Stop Dose Admin Hydrocodone Bitart/Acetaminophen 1 tab 05/08/19 13:58 05/08/19 18:31 [place] 10/325 PO 1 tab Q4H PRN Administration Moderate Pain (4-6) Hydrocodone Bitart/Acetaminophen 2 tab 05/08/19 13:58 05/09/19 08:21 [place] 10/325 PO 2 tab Q4H PRN Administration Severe Pain (7-10) Carvedilol 12.5 mg 05/08/19 17:00 05/09/19 08:20 Coreg PO 12.5 mg BID-WM JESSICA Administration Duloxetine HCl 60 mg 05/09/19 09:00 05/09/19 08:20 Cymbalta PO 60 mg QAM JESSICA Administration Fentanyl 100 mcg 05/08/19 13:58 05/08/19 16:39 Sublimaze SLOW IVP 100 mcg Q1H PRN Administration Severe Pain (7-10) Folic Acid 1 mg 05/09/19 09:00 05/09/19 08:21 Folvite PO 1 mg DAILY JESSICA Administration Hydroxychloroquine Sulfate 200 mg 05/08/19 21:00 05/09/19 08:21 Plaquenil PO 200 mg BID JESSICA Administration Ropivacaine 250 ml/ Device 250 mls @ 0 mls/hr 05/08/19 09:22 05/09/19 13:49 NERVE BLCK 05/10/19 09:23 250 mls INF JESSICA Administration As Directed Sodium Chloride 1,000 mls @ 100 mls/hr 05/08/19 13:58 05/09/19 09:10 Normal Saline 0.9% IV Not Given .Q10H JESSICA Iron/Minerals/Multivitamins 1 tab 05/09/19 09:00 05/09/19 08:20 Theragran M PO 1 tab DAILY JESSICA Administration Ketorolac Tromethamine 15 mg 05/08/19 12:00 05/09/19 11:21 Toradol IVP 05/10/19 06:01 Not Given Q6HR JESSICA Losartan Potassium 25 mg 05/08/19 21:00 05/09/19 08:21 Cozaar PO 25 mg BID JESSICA Administration Metformin HCl 500 mg 05/08/19 17:00 05/09/19 08:20 Glucophage PO 500 mg BID-WM JESSICA Administration Pantoprazole Sodium 40 mg 05/09/19 09:00 05/09/19 08:20 Protonix PO 40 mg QAM JESSICA Administration Rivaroxaban 10 mg 05/09/19 09:00 05/09/19 08:20 Xarelto PO 10 mg DAILY JESSICA Administration Rosuvastatin Calcium 20 mg 05/08/19 21:00 05/08/19 20:49 Crestor PO 20 mg HS JESSICA Administration Senna/Docusate Sodium 2 tab 05/08/19 21:00 05/09/19 08:20 Senokot S PO 2 tab BID EJSSICA Administration - Exam General Appearance: NAD, awake alert ENT: normocephalic atraumatic Neck: supple, symmetric, no JVD Heart: RRR, no murmur Respiratory: CTAB Gastrointestinal: non-distended, normal bowel sounds Extremities - other findings: R- knee arthroplasty Hosp A/P - Plan old records reviewed/req s/p R/ TKA --emarly ambulation -alangesic and stool softener -rehab when able. sys-CHF without exacerbation CAD - on plavix, coreg, crestor HTN as above + losartan DM2 -hold metformin as pt is not nasueated, once better, will restart. -SSI RA -on hydroxychloroquine HLP -crestor DVT ppx - xarelto
[2019-05-09] MEDS ORDERED: hydrALAZINE 20 MG/ML VIAL SLOW IVP PRN (15:19)
[2019-05-09] MEDS: Scopolamine 1.5 mg/72 hour Patch TOP SCH (20:18)
[2019-05-09] MEDS: Rosuvastatin 20 MG TAB PO SCH (20:19)
[2019-05-10] MEDS: Sodium Chloride 0.9% 1,000 ML IV SCH ×2 (04:19→15:21)
[2019-05-10 05:44] LABS: #Eosinphils 0.1 thou/uL (0.0-0.7); #Lymphocytes 1.8 thou/uL (1.20-3.40); #Monocytes 1.1 thou/uL (0.11-0.59); %Eosinophils 0.6 % (0.0-10.0); %Lymphocytes 17.6 % (21.0-51.0); %Monocytes 10.9 % (0.0-10.0); %Neutrophils 70.8 % (42.0-75.0); Hemoglobin 9.9 g/dL (12.0-16.0); Mean Corpuscular Hemoglobin 27.3 pg (27.0-31.0); Mean Corpuscular Volume 82.6 fL (78.0-98.0); Mean Platelet Volume 7.6 fL (7.4-10.4); Platelet Count 227 thou/uL (130-400); RBC Distribution Width 13.8 % (11.5-14.5); Red Blood Cell (RBC) Count 3.63 mill/uL (4.20-5.40); White Blood Cell (WBC) Count 9.9 thou/uL (4.8-10.8)
[2019-05-10] MEDS: Ketorolac Tromethamine 30 MG/ML VIAL IVP SCH (06:48)
[2019-05-10] MEDS: Rivaroxaban 10 MG TAB PO SCH (08:45)
[2019-05-10] MEDS: Senokot S 8.6-50 MG TAB PO SCH ×2 (08:45→19:23)
[2019-05-10] MEDS: DULoxetine 60 MG CAP PO SCH (08:45)
[2019-05-10] MEDS: Hydroxychloroquine Sulfate 200 MG TAB PO SCH ×2 (08:45→19:22)
[2019-05-10] MEDS: Carvedilol 6.25 MG TAB PO SCH ×2 (08:45→17:49)
[2019-05-10] MEDS: Multivitamin W/ Minerals 1 TAB PO SCH (08:45)
[2019-05-10] MEDS: Folic Acid 1 MG TAB PO SCH (08:45)
[2019-05-10] MEDS: Losartan 25 MG TAB PO SCH ×2 (08:46→19:23)
[2019-05-10] MEDS: metFORMIN 500 MG TAB PO SCH ×2 (08:46→17:49)
--- NOTE | 2019-05-10 11:31 | PRG ---
DATE OF SERVICE: 05/10/2019 SUBJECTIVE: Jocelynn is a 74-year-old female, postop day 2 from right total knee arthroplasty. She is doing relatively well. Her pain has been very well controlled. She was able to ambulate 285 feet yesterday. However, she struggles with activities of daily living such as getting from bed to toilet independently. OBJECTIVE: VITAL SIGNS: Temperature 98.8, pulse rate 102, respiratory rate 18 and nonlabored, and blood pressure is 139/60. GENERAL: She is alert, oriented, responsive, appropriate with examiner. EXTREMITIES: Her incision is clean and closed. No erythema. No strike through. NEUROLOGIC: She is neurovascularly intact in the right lower extremity. LABORATORY DATA: Hemoglobin and hematocrit 9.9 and 30. IMPRESSION: A 74-year-old female, postop day 1 from right total knee arthroplasty. We will consult for a skilled placement versus inpatient rehabilitation. Job ID: [id number]
--- NOTE | 2019-05-10 13:23 | PDOC.HOSPP ---
- Subjective Subjective: sitting in the chair, r. knee mildly erythematic around the suture site, expected. no acute c/o. BP and BG ok. - Objective Vital Signs & Weight: Vital Signs (12 hours) Temp Pulse Resp BP BP Pulse Ox 05/10/19 11:05 99.6 F 93 16 152/78 H 93 L 05/10/19 07:38 98.8 F 102 H 18 139/62 92 L Weight Admit Weight 179 lb Weight 179 lb I&O: 05/09/19 05/10/19 05/11/19 06:59 06:59 06:59 Intake Total 1680 1250 Output Total 975 Balance 705 1250 Result Diagrams: 05/10/19 05:01 05/09/19 05:09 Additional Labs: Accuchecks 05/10/19 05/10/19 05/09/19 11:09 05:34 20:26 POC Glucose 82 98 94 05/09/19 15:26 POC Glucose 106 Hospitalist ROS - Medication Medications: Active Medications Generic Name Dose Route Start Last Admin Trade Name Freq PRN Reason Stop Dose Admin Hydrocodone Bitart/Acetaminophen 1 tab 05/08/19 13:58 05/08/19 18:31 [place] 10/325 PO 1 tab Q4H PRN Administration Moderate Pain (4-6) Hydrocodone Bitart/Acetaminophen 2 tab 05/08/19 13:58 05/09/19 08:21 [place] 10/325 PO 2 tab Q4H PRN Administration Severe Pain (7-10) Carvedilol 12.5 mg 05/08/19 17:00 05/10/19 08:45 Coreg PO 12.5 mg BID-WM JESSICA Administration Diphenhydramine HCl 25 mg 05/08/19 13:58 05/10/19 00:55 Benadryl PO 25 mg Q6H PRN Administration Itching Duloxetine HCl 60 mg 05/09/19 09:00 05/10/19 08:45 Cymbalta PO 60 mg QAM JESSICA Administration Fentanyl 100 mcg 05/08/19 13:58 05/08/19 16:39 Sublimaze SLOW IVP 100 mcg Q1H PRN Administration Severe Pain (7-10) Folic Acid 1 mg 05/09/19 09:00 05/10/19 08:45 Folvite PO 1 mg DAILY JESSICA Administration Hydroxychloroquine Sulfate 200 mg 05/08/19 21:00 05/10/19 08:45 Plaquenil PO 200 mg BID JESSICA Administration Sodium Chloride 1,000 mls @ 100 mls/hr 05/08/19 13:58 05/10/19 04:19 Normal Saline 0.9% IV Not Given .Q10H JESSICA Iron/Minerals/Multivitamins 1 tab 05/09/19 09:00 05/10/19 08:45 Theragran M PO 1 tab DAILY JESSICA Administration Losartan Potassium 25 mg 05/08/19 21:00 05/10/19 08:46 Cozaar PO 25 mg BID JESSICA Administration Metformin HCl 500 mg 05/08/19 17:00 05/10/19 08:46 Glucophage PO 500 mg BID-WM JESSICA Administration Ondansetron HCl 4 mg 05/09/19 14:45 05/09/19 15:15 Zofran IVP 4 mg Q4H PRN Administration Nausea/Vomiting Pantoprazole Sodium 40 mg 05/09/19 09:00 05/10/19 08:45 Protonix PO 40 mg QAM JESSICA Administration Rivaroxaban 10 mg 05/09/19 09:00 05/10/19 08:45 Xarelto PO 10 mg DAILY JESSICA Administration Rosuvastatin Calcium 20 mg 05/08/19 21:00 05/09/19 20:19 Crestor PO 20 mg HS JESSICA Administration Scopolamine 1.5 mg 05/09/19 20:00 05/09/19 20:18 Transderm Scop TOP 1.5 mg Q3D JESSICA Administration Senna/Docusate Sodium 2 tab 05/08/19 21:00 05/10/19 08:45 Senokot S PO 2 tab BID JESSICA Administration - Exam General Appearance: NAD Eye: PERRL ENT: normocephalic atraumatic Neck: symmetric Heart: RRR Respiratory: CTAB Gastrointestinal: soft, normal bowel sounds Neurological: no focal deficits Psychiatric: normal affect Hosp A/P - Plan s/p R/ TKA --emarly ambulation -alangesic and stool softener -rehab when able. sys-CHF without exacerbation CAD - on plavix, coreg, crestor HTN as above + losartan -one reading today high DM2 -hold metformin as pt is not nasueated, once better, will restart. -SSI RA -on hydroxychloroquine HLP -crestor DVT ppx - xarelto x10 days. pending rehab. medically stable for transfer.
[2019-05-10] MEDS: HYDROcodone/Acetaminophen 10/325 mg Tablet PO PRN (17:50)
[2019-05-10] MEDS: Rosuvastatin 20 MG TAB PO SCH (19:23)
[2019-05-11] MEDS: Sodium Chloride 0.9% 1,000 ML IV SCH ×3 (03:29→22:49)
[2019-05-11] MEDS: HYDROcodone/Acetaminophen 10/325 mg Tablet PO PRN ×3 (08:02→17:36)
[2019-05-11] MEDS: metFORMIN 500 MG TAB PO SCH ×2 (08:03→17:36)
[2019-05-11] MEDS: Hydroxychloroquine Sulfate 200 MG TAB PO SCH ×2 (08:03→19:23)
[2019-05-11] MEDS: Senokot S 8.6-50 MG TAB PO SCH ×2 (08:03→19:23)
[2019-05-11] MEDS: Folic Acid 1 MG TAB PO SCH (08:03)
[2019-05-11] MEDS: DULoxetine 60 MG CAP PO SCH (08:03)
[2019-05-11] MEDS: Rivaroxaban 10 MG TAB PO SCH (08:04)
[2019-05-11] MEDS: Losartan 25 MG TAB PO SCH ×2 (08:04→19:24)
[2019-05-11] MEDS: Carvedilol 6.25 MG TAB PO SCH ×2 (08:04→17:36)
[2019-05-11] MEDS: Multivitamin W/ Minerals 1 TAB PO SCH (08:04)
--- NOTE | 2019-05-11 15:08 | PDOC.HOSPP ---
- Subjective Subjective: sitting in the chair, participating in PT, no nausea today, tolerating her diet. BP and BG in reasonable range. - Objective Vital Signs & Weight: Vital Signs (12 hours) Temp Pulse Resp BP BP Pulse Ox 05/11/19 14:50 97.7 F 86 16 108/68 95 05/11/19 11:32 97.5 F L 86 14 132/80 97 05/11/19 07:55 97.6 F 95 12 137/77 95 Weight Admit Weight 179 lb Weight 179 lb I&O: 05/10/19 05/11/19 05/12/19 06:59 06:59 06:59 Intake Total 1250 1140 Balance 1250 1140 Result Diagrams: 05/10/19 05:01 05/09/19 05:09 Additional Labs: Accuchecks 05/11/19 05/10/19 05/10/19 10:50 20:24 15:47 POC Glucose 147 H 139 H 103 Hospitalist ROS - Medication Medications: Active Medications Generic Name Dose Route Start Last Admin Trade Name Freq PRN Reason Stop Dose Admin Hydrocodone Bitart/Acetaminophen 1 tab 05/08/19 13:58 05/08/19 18:31 [place] 10/325 PO 1 tab Q4H PRN Administration Moderate Pain (4-6) Hydrocodone Bitart/Acetaminophen 2 tab 05/08/19 13:58 05/11/19 13:15 [place] 10/325 PO 2 tab Q4H PRN Administration Severe Pain (7-10) Carvedilol 12.5 mg 05/08/19 17:00 05/11/19 08:04 Coreg PO 12.5 mg BID-WM JESSICA Administration Diphenhydramine HCl 25 mg 05/08/19 13:58 05/10/19 00:55 Benadryl PO 25 mg Q6H PRN Administration Itching Duloxetine HCl 60 mg 05/09/19 09:00 05/11/19 08:03 Cymbalta PO 60 mg QAM JESSICA Administration Fentanyl 100 mcg 05/08/19 13:58 05/08/19 16:39 Sublimaze SLOW IVP 100 mcg Q1H PRN Administration Severe Pain (7-10) Folic Acid 1 mg 05/09/19 09:00 05/11/19 08:03 Folvite PO 1 mg DAILY JESSICA Administration Hydroxychloroquine Sulfate 200 mg 05/08/19 21:00 05/11/19 08:03 Plaquenil PO 200 mg BID JESSICA Administration Sodium Chloride 1,000 mls @ 100 mls/hr 05/08/19 13:58 05/11/19 10:49 Normal Saline 0.9% IV Not Given .Q10H JESSICA Iron/Minerals/Multivitamins 1 tab 05/09/19 09:00 05/11/19 08:04 Theragran M PO 1 tab DAILY JESSICA Administration Losartan Potassium 25 mg 05/08/19 21:00 05/11/19 08:04 Cozaar PO 25 mg BID JESSICA Administration Metformin HCl 500 mg 05/08/19 17:00 05/11/19 08:03 Glucophage PO 500 mg BID-WM JESSICA Administration Ondansetron HCl 4 mg 05/09/19 14:45 05/09/19 15:15 Zofran IVP 4 mg Q4H PRN Administration Nausea/Vomiting Pantoprazole Sodium 40 mg 05/09/19 09:00 05/11/19 08:04 Protonix PO 40 mg QAM JESSICA Administration Rivaroxaban 10 mg 05/09/19 09:00 05/11/19 08:04 Xarelto PO 10 mg DAILY JESSICA Administration Rosuvastatin Calcium 20 mg 05/08/19 21:00 05/10/19 19:23 Crestor PO 20 mg HS JESSICA Administration Scopolamine 1.5 mg 05/09/19 20:00 05/09/19 20:18 Transderm Scop TOP 1.5 mg Q3D JESSICA Administration Senna/Docusate Sodium 2 tab 05/08/19 21:00 05/11/19 08:03 Senokot S PO 2 tab BID JESSICA Administration - Exam General Appearance: NAD, awake alert Eye: PERRL ENT: normocephalic atraumatic, no oropharyngeal lesions Neck: supple Heart: RRR, no murmur Respiratory: CTAB, no wheezes, no rales Gastrointestinal: soft, non-tender, non-distended, normal bowel sounds Extremities - other findings: rknee -erythmatic, swollen [expect around the suture site, which looks good Hosp A/P - Plan s/p R/ TKA --emarly ambulation -alangesic and stool softener -rehab when able. sys-CHF without exacerbation CAD - on plavix, coreg, crestor HTN as above + losartan -one reading today high DM2 -restarted metformin. -SSI RA -on hydroxychloroquine HLP -crestor DVT ppx - xarelto x10 days. pending rehab. medically stable for transfer, when bed available.
[2019-05-11] MEDS: Rosuvastatin 20 MG TAB PO SCH (19:24)
[2019-05-12 05:21] LABS: #Eosinphils 0.2 thou/uL (0.0-0.7); #Lymphocytes 1.9 thou/uL (1.20-3.40); #Monocytes 0.7 thou/uL (0.11-0.59); #Neutrophils 2.5 thou/uL (1.40-6.50); %Basophils 0.5 % (0.0-1.0); %Eosinophils 3.9 % (0.0-10.0); %Lymphocytes 35.7 % (21.0-51.0); %Monocytes 12.9 % (0.0-10.0); Hemoglobin 9.5 g/dL (12.0-16.0); Mean Corpuscular HGB CONC 31.5 g/dL (32.0-36.0); Mean Corpuscular Hemoglobin 26.4 pg (27.0-31.0); Mean Corpuscular Volume 83.9 fL (78.0-98.0); Mean Platelet Volume 7.4 fL (7.4-10.4); Platelet Count 236 thou/uL (130-400); RBC Distribution Width 13.9 % (11.5-14.5); Red Blood Cell (RBC) Count 3.58 mill/uL (4.20-5.40); White Blood Cell (WBC) Count 5.3 thou/uL (4.8-10.8)
[2019-05-12 05:49] LABS: Anion Gap 12 mmol/L (10-20); BUN (Urea Nitrogen) 18 mg/dL (9.8-20.1); Calc. Creatinine Clearance 62 mL/min (70-130); Calcium 9.2 mg/dL (7.8-10.44); Carbon Dioxide 24 mmol/L (23-31); Chloride 105 mmol/L (98-107); Estimated GFR-MDRD 53; Glucose 101 mg/dL (83-110); Potassium 4.1 mmol/L (3.5-5.1); Sodium 137 mmol/L (136-145)
[2019-05-12] MEDS: HYDROcodone/Acetaminophen 10/325 mg Tablet PO PRN ×2 (06:15→13:44)
[2019-05-12] MEDS: Sodium Chloride 0.9% 1,000 ML IV SCH ×2 (07:40→17:23)
[2019-05-12] MEDS: DULoxetine 60 MG CAP PO SCH (08:40)
[2019-05-12] MEDS: Multivitamin W/ Minerals 1 TAB PO SCH (08:40)
[2019-05-12] MEDS: metFORMIN 500 MG TAB PO SCH ×2 (08:40→17:21)
[2019-05-12] MEDS: Hydroxychloroquine Sulfate 200 MG TAB PO SCH ×2 (08:40→21:08)
[2019-05-12] MEDS: Rivaroxaban 10 MG TAB PO SCH (08:41)
[2019-05-12] MEDS: Carvedilol 6.25 MG TAB PO SCH ×2 (08:41→17:21)
[2019-05-12] MEDS: Losartan 25 MG TAB PO SCH ×2 (08:41→21:02)
[2019-05-12] MEDS: Folic Acid 1 MG TAB PO SCH (08:41)
[2019-05-12] MEDS: Senokot S 8.6-50 MG TAB PO SCH ×2 (08:42→21:07)
--- NOTE | 2019-05-12 20:44 | PDOC.HOSPP ---
- Subjective Encounter Date: 05/12/19 Encounter Time: 09:30 Subjective: Patient seen and examined for med mngt. No CP or SOB. Pain controlled. No new complaints. No overnight events - Objective Vital Signs & Weight: Vital Signs (12 hours) Temp Pulse Resp BP BP Pulse Ox 05/12/19 19:39 97.6 F 85 16 93/61 97 05/12/19 15:11 98.5 F 93 16 112/71 94 L 05/12/19 11:48 97.7 F 84 18 120/66 95 05/12/19 08:44 98.2 F 99 20 117/73 95 Weight Admit Weight 179 lb Weight 179 lb I&O: 05/11/19 05/12/19 05/13/19 06:59 06:59 06:59 Intake Total 1140 1400 900 Balance 1140 1400 900 Result Diagrams: 05/12/19 05:10 05/12/19 05:10 Additional Labs: Accuchecks 05/12/19 05/12/19 05/12/19 20:24 16:28 11:50 POC Glucose 127 H 114 H 100 05/12/19 05/11/19 06:27 20:38 POC Glucose 111 H 119 H Hospitalist ROS - Review of Systems Respiratory: denies: cough, dry, shortness of breath, hemoptysis, SOB with excertion, pleuritic pain, sputum, wheezing, other Cardiovascular: denies: chest pain, palpitations, orthopnea, paroxysmal noc. dyspnea, edema, light headedness, other - Medication Medications: Active Medications Generic Name Dose Route Start Last Admin Trade Name Freq PRN Reason Stop Dose Admin Hydrocodone Bitart/Acetaminophen 1 tab 05/08/19 13:58 05/08/19 18:31 [place] 10/325 PO 1 tab Q4H PRN Administration Moderate Pain (4-6) Hydrocodone Bitart/Acetaminophen 2 tab 05/08/19 13:58 05/12/19 13:44 [place] 10/325 PO 2 tab Q4H PRN Administration Severe Pain (7-10) Carvedilol 12.5 mg 05/08/19 17:00 05/12/19 17:21 Coreg PO 12.5 mg BID-WM JESSICA Administration Diphenhydramine HCl 25 mg 05/08/19 13:58 05/10/19 00:55 Benadryl PO 25 mg Q6H PRN Administration Itching Duloxetine HCl 60 mg 05/09/19 09:00 05/12/19 08:40 Cymbalta PO 60 mg QAM JESSICA Administration Fentanyl 100 mcg 05/08/19 13:58 05/08/19 16:39 Sublimaze SLOW IVP 100 mcg Q1H PRN Administration Severe Pain (7-10) Folic Acid 1 mg 05/09/19 09:00 05/12/19 08:41 Folvite PO 1 mg DAILY JESSICA Administration Hydroxychloroquine Sulfate 200 mg 05/08/19 21:00 05/12/19 08:40 Plaquenil PO 200 mg BID JESSICA Administration Sodium Chloride 1,000 mls @ 100 mls/hr 05/08/19 13:58 05/12/19 17:23 Normal Saline 0.9% IV Not Given .Q10H [facility] Iron/Minerals/Multivitamins 1 tab 05/09/19 09:00 05/12/19 08:40 Theragran M PO 1 tab DAILY [facility] Administration Losartan Potassium 25 mg 05/08/19 21:00 05/12/19 08:41 Cozaar PO 25 mg BID JESSICA Administration Metformin HCl 500 mg 05/08/19 17:00 05/12/19 17:21 Glucophage PO 500 mg BID-WM JESSICA Administration Ondansetron HCl 4 mg 05/09/19 14:45 05/09/19 15:15 Zofran IVP 4 mg Q4H PRN Administration Nausea/Vomiting Pantoprazole Sodium 40 mg 05/09/19 09:00 05/12/19 08:41 Protonix PO 40 mg QAM JESSICA Administration Rivaroxaban 10 mg 05/09/19 09:00 05/12/19 08:41 Xarelto PO 10 mg DAILY JESSICA Administration Rosuvastatin Calcium 20 mg 05/08/19 21:00 05/11/19 19:24 Crestor PO 20 mg HS JESSICA Administration Scopolamine 1.5 mg 05/09/19 20:00 05/09/19 20:18 Transderm Scop TOP 1.5 mg Q3D JESSICA Administration Senna/Docusate Sodium 2 tab 05/08/19 21:00 05/12/19 08:42 Senokot S PO Not Given BID JESSICA - Exam General Appearance: NAD Heart: RRR, no gallops Respiratory: no wheezes, no ronchi Gastrointestinal: non-tender, non-distended, normal bowel sounds Extremities: no cyanosis, no edema Neurological: no new deficit Hosp A/P - Plan DVT proph w/SCDs HTN DM2 HLD Obesity BMI 36.2 CKD 3 PLAN: Cont Coreg Cont Metformin Cont sliding scale Cont other meds as above
[2019-05-12] MEDS: Scopolamine 1.5 mg/72 hour Patch TOP SCH (21:06)
[2019-05-12] MEDS: Rosuvastatin 20 MG TAB PO SCH (21:08)
[2019-05-13] MEDS ORDERED: HYDROcodone/Acetaminophen 10/325 mg Tablet PO PRN ×2 (01:01→01:02)
[2019-05-13] MEDS: Multivitamin W/ Minerals 1 TAB PO SCH (09:22)
[2019-05-13] MEDS: Folic Acid 1 MG TAB PO SCH (09:23)
[2019-05-13] MEDS: DULoxetine 60 MG CAP PO SCH (09:23)
[2019-05-13] MEDS: Rivaroxaban 10 MG TAB PO SCH (09:24)
--- NOTE | 2019-05-13 10:10 | PRG ---
DATE OF SERVICE: 05/13/2019 SUBJECTIVE: Jocelynn is a 74-year-old female, who is postop day 5 from elective right total knee arthroplasty. She is comfortable, has no complaints. She is ambulating 400 feet in a full weightbearing fashion with a rolling walker. OBJECTIVE: VITAL SIGNS: Temperature 97.4, pulse 98, respiratory rate 15, blood pressure is 140/79. GENERAL: She is alert, responsive and appropriate with examiner. Short-term memory loss deficit is noted. Her incision is clean. No strike through. No erythema. No shortening or malrotation. She is neurovascularly intact in the right lower extremity. LABORATORY DATA: Hemoglobin and hematocrit 9.5 and 30 as of yesterday. PLAN: Placement is pending at this point. We will continue to follow. Job ID: [id number]
[2019-05-13 12:07] VITALS: BP 142/77; TEMP 97.6
[2019-05-13] MEDS: Hydroxychloroquine Sulfate 200 MG TAB PO SCH (12:23)
[2019-05-13] MEDS: Carvedilol 6.25 MG TAB PO SCH (12:23)
[2019-05-13] MEDS: Losartan 25 MG TAB PO SCH (12:23)
[2019-05-13] MEDS: Senokot S 8.6-50 MG TAB PO SCH (12:24)
[2019-05-13] MEDS: metFORMIN 500 MG TAB PO SCH (12:24)
== END 2019-05-13 14:04 ==
LOC: SDC 06:53 → SJJU 13:31 → SDC 05-13 14:04
PROVIDERS: ATTEND Orthopaedic Surgery
PROC: 0SRC0J9 Replacement of Right Knee Joint with Synthetic Substitute, Cemented, Open Approach (ICD-10-PCS; principal; 2019-05-08)
PROC: 8E0YXBZ Computer Assisted Procedure of Lower Extremity (ICD-10-PCS; 2019-05-08)
DX: M17.11 Unilateral primary osteoarthritis, right knee (principal); E11.9 Type 2 diabetes mellitus without complications; I25.10 Atherosclerotic heart disease of native coronary artery without angina pectoris; I11.0 Hypertensive heart disease with heart failure; I50.20 Unspecified systolic (congestive) heart failure; J44.9 Chronic obstructive pulmonary disease, unspecified; M06.9 Rheumatoid arthritis, unspecified; E78.5 Hyperlipidemia, unspecified; E66.9 Obesity, unspecified; Z68.36 Body mass index [BMI] 36.0-36.9, adult; Z79.02 Long term (current) use of antithrombotics/antiplatelets; Z79.84 Long term (current) use of oral hypoglycemic drugs; Z79.899 Other long term (current) drug therapy; Z88.0 Allergy status to penicillin; Z88.2 Allergy status to sulfonamides; Z88.5 Allergy status to narcotic agent; Z88.8 Allergy status to other drugs, medicaments and biological substances; Z91.030 Bee allergy status; Z91.041 Radiographic dye allergy status; Z96.652 Presence of left artificial knee joint
CPT/HCPCS: 20985; 27447; 73560; 80048; 82962; 85025 ×2; 97110; 97116 ×5; 97139 ×5; 97150; 97530 ×2; C1713; C1776; 36415; 36416; J1956; J2001; J2250; J2405; J2704; J2795; J3010; J3490; S0020

== ENCOUNTER 2022-12-24 11:07 | Outpatient (CLI) | payer MEDICARE, OTHER | END 2022-12-24 11:08 | disposition home or self-care (01) | LOC: BICMRI 11:07 | PROVIDERS: ATTEND Orthopaedic Surgery | DX: M75.102 Unspecified rotator cuff tear or rupture of left shoulder, not specified as traumatic (principal); M19.012 Primary osteoarthritis, left shoulder; M21.822 Other specified acquired deformities of left upper arm ==

== ENCOUNTER 2023-02-12 14:50 | Outpatient (CLI) | payer MEDICARE, OTHER | END 2023-02-12 14:51 | disposition home or self-care (01) | LOC: SCSMRI 14:50 | PROVIDERS: ATTEND Family Medicine | DX: M47.22 Other spondylosis with radiculopathy, cervical region (principal); M47.816 Spondylosis without myelopathy or radiculopathy, lumbar region; G89.4 Chronic pain syndrome; M47.817 Spondylosis without myelopathy or radiculopathy, lumbosacral region; M48.02 Spinal stenosis, cervical region | CPT/HCPCS: 72040; 72100; 72141; 72148 ==

== ENCOUNTER 2024-11-30 12:33 | Emergency (ER) | payer MEDICARE, OTHER ==
[2024-11-30 14:26] LABS: Bacteria/HPF None Seen HPF (None Seen); CAUTI Indications for Culture Acute Hematuria; Glucose, Urine (Dipstick) Normal (Negative); Leukocyte 500 Leu/uL (Negative); Protein, Urine (Dipstick) Negative (Neg-Trace); RBC/HPF 0-3 HPF (0-3); Specific Gravity, Urine 1.013 (1.002-1.036)
[2024-11-30 14:28] LABS: Urine Culture Reflex Yes Yes
[2024-11-30 15:55] LABS: #Basophils Less than 0.03 10x3/uL (0.0-0.2); #Eosinophils 0.15 10x3/uL (0.0-0.7); #Monocytes 0.67 10x3/uL (0.11-0.59); #Neutrophils 3.40 10x3/uL (1.40-6.50); %Basophils 0.3 % (0.0-1.0); %Eosinophils 2.3 % (0.0-10.0); %Lymphocytes 36.0 % (21.0-51.0); %Monocytes 10.1 % (0.0-10.0); %Neutrophils 51.3 % (42.0-75.0); Hematocrit 37.9 % (36.0-47.0); Hemoglobin 11.8 g/dL (12.0-16.0); Mean Corpuscular Hemoglobin 26.3 pg (27.0-31.0); Mean Corpuscular Volume 84.6 fL (78.0-98.0); Platelet Count 269 10x3/uL (130-400); Red Blood Cell (RBC) Count 4.48 mill/uL (4.20-5.40); White Blood Cell (WBC) Count 6.63 10x3/uL (4.8-10.8)
[2024-11-30 16:13] LABS: ALT (SGPT) 11 U/L (Less than 34); AST (SGOT) 22 U/L (11-34); Albumin 4.4 g/dL (3.1-4.5); Alkaline Phosphatase 86 U/L (40-110); Anion Gap 13 mmol/L (10-20); BUN (Urea Nitrogen) 18 mg/dL (9.8-20.1); Bilirubin, Total 0.5 mg/dL (0.3-1.2); Calc. Creatinine Clearance 0 mL/min (70-130); Calcium 9.8 mg/dL (7.8-10.44); Carbon Dioxide 27 mmol/L (23-31); Chloride 105 mmol/L (98-107); Globulin 2.9 g/dL (2.4-3.5); Glucose 84 mg/dL (83-110); Lipase 30 U/L (8-78); Potassium 4.5 mmol/L (3.5-5.1); Sodium 140 mmol/L (136-145)
== END 2024-11-30 17:00 | disposition home or self-care (01) ==
LOC: ERS 12:33
DX: F03.90 Unspecified dementia, unspecified severity, without behavioral disturbance, psychotic disturbance, mood disturbance, and anxiety (principal); I11.0 Hypertensive heart disease with heart failure; I50.9 Heart failure, unspecified; E11.9 Type 2 diabetes mellitus without complications
CPT/HCPCS: 70450; 74176; 80053; 81001; 83690; 85025; 87086

== ENCOUNTER 2025-01-06 13:23 | Emergency (ER) | payer MEDICARE, OTHER ==
[2025-01-06 14:10] LABS: #Basophils Less than 0.03 10x3/uL (0.0-0.2); #Eosinophils 0.11 10x3/uL (0.0-0.7); #Monocytes 0.53 10x3/uL (0.11-0.59); #Neutrophils 2.22 10x3/uL (1.40-6.50); %Basophils 0.2 % (0.0-1.0); %Eosinophils 2.4 % (0.0-10.0); %Lymphocytes 38.5 % (21.0-51.0); %Monocytes 11.3 % (0.0-10.0); %Neutrophils 47.4 % (42.0-75.0); Hematocrit 35.6 % (36.0-47.0); Hemoglobin 11.1 g/dL (12.0-16.0); Mean Corpuscular Hemoglobin 26.2 pg (27.0-31.0); Mean Corpuscular Volume 84.0 fL (78.0-98.0); Platelet Count 275 10x3/uL (130-400); Red Blood Cell (RBC) Count 4.24 mill/uL (4.20-5.40); White Blood Cell (WBC) Count 4.68 10x3/uL (4.8-10.8)
[2025-01-06 14:25] LABS: ALT (SGPT) 10 U/L (Less than 34); AST (SGOT) 22 U/L (11-34); Albumin 4.0 g/dL (3.1-4.5); Alkaline Phosphatase 82 U/L (40-110); Anion Gap 18 mmol/L (10-20); BUN (Urea Nitrogen) 26 mg/dL (9.8-20.1); Bilirubin, Total 0.4 mg/dL (0.3-1.2); Calc. Creatinine Clearance 0 mL/min (70-130); Calcium 9.0 mg/dL (7.8-10.44); Carbon Dioxide 25 mmol/L (23-31); Chloride 108 mmol/L (98-107); Globulin 2.5 g/dL (2.4-3.5); Glucose 72 mg/dL (83-110); Magnesium 1.7 mg/dL (1.6-2.6); Potassium 4.3 mmol/L (3.5-5.1); Sodium 147 mmol/L (136-145)
[2025-01-06 15:24] LABS: Bacteria/HPF None Seen HPF (None Seen); CAUTI Indications for Culture Alt mental st,lethar; Glucose, Urine (Dipstick) Normal (Negative); Leukocyte 500 Leu/uL (Negative); Protein, Urine (Dipstick) Negative (Neg-Trace); RBC/HPF 0-3 HPF (0-3); Specific Gravity, Urine 1.017 (1.002-1.036)
[2025-01-06 15:26] LABS: Urine Culture Reflex No No
== END 2025-01-06 16:00 | disposition home or self-care (01) ==
LOC: ERS 13:23
DX: Z04.1 Encounter for examination and observation following transport accident (principal); R41.0 Disorientation, unspecified; F03.90 Unspecified dementia, unspecified severity, without behavioral disturbance, psychotic disturbance, mood disturbance, and anxiety; V43.52XA Car driver injured in collision with other type car in traffic accident, initial encounter; E11.9 Type 2 diabetes mellitus without complications
CPT/HCPCS: 36416; 70450; 80053; 81001; 83735; 84484; 85025; 93005

== ENCOUNTER 2025-04-04 13:58 | Emergency (ER) | payer MEDICARE, OTHER | END 2025-04-04 16:52 | disposition home or self-care (01) | LOC: ERS 13:58 | DX: S01.81XA Laceration without foreign body of other part of head, initial encounter (principal); S51.811A Laceration without foreign body of right forearm, initial encounter; I11.0 Hypertensive heart disease with heart failure; I50.9 Heart failure, unspecified; E11.9 Type 2 diabetes mellitus without complications; E78.5 Hyperlipidemia, unspecified; Z79.899 Other long term (current) drug therapy; Z79.2 Long term (current) use of antibiotics; F03.90 Unspecified dementia, unspecified severity, without behavioral disturbance, psychotic disturbance, mood disturbance, and anxiety; W18.30XA Fall on same level, unspecified, initial encounter | CPT/HCPCS: 70450; 72125; 72128; 72131 ==